=== PATIENT | female | born 2005 | race Caucasian/White ===

== ENCOUNTER 2024-01-02 09:37 | Emergency (ER) | payer OTHER, SELFPAY ==
[2024-01-02 09:53] VITALS: BP 117/70; PULSE 69; RESP 16; TEMP 36.3; O2SAT 99
--- NOTE | 2024-01-02 10:06 | ED.URI ---
HPI - URI/Sore Throat General Chief Complaint: Upper Respiratory Infection Stated Complaint: cold symptoms Time Seen by Provider: 01/02/24 10:06 Source: patient Mode of arrival: ambulatory Limitations: no limitations History of Present Illness HPI Narrative: [age] year Old female presents with complaint of nasal congestion, sinus pain and pressure, intermittent headaches, fatigue for the past 8 days. Symptoms worsening over the last 2 days. Reports intermittent sore throat with postnasal drainage. Taking [id number] Mucinex with little relief of symptoms. Afebrile. all systems reviewed and negative except as noted above. Related Data Home Medications Medication Instructions Recorded Confirmed fluoxetine 20 mg capsule mg 01/02/24 insulin lispro 100 unit/mL subcut 01/02/24 01/02/24 subcutaneous pen (Humalog KwikPen (U-100) Insulin) norgestimate 0.25 mg-ethinyl tablet 01/02/24 estradiol 35 mcg tablet (Aliyah) Allergies Allergy/AdvReac Type Severity Reaction Status Date / Time No Known Allergies Allergy Verified 01/02/24 09:53 Review of Systems Review of Systems: CONSTITUTIONAL: Denies fever, chills, or sweats. Reports fatigue. EYES: Denies visual changes, redness, or discharge. ENT: Reports rhinorrhea, congestion, sore throat. Denies otalgia. CARDIOVASCULAR: Denies chest pain, palpitations, or edema. RESPIRATORY: Denies cough or dyspnea. GASTROINTESTINAL: Denies abdominal pain, nausea, vomiting, or diarrhea. GENITOURINARY: Denies dysuria or hematuria. SKIN: Denies rash or itching. MUSCULOSKELETAL: Denies back pain, joint pain, or myalgia. NEUROLOGIC: Denies headache, numbness, or weakness. PSYCHIATRIC: Denies anxiety or depression. All other systems reviewed are negative, except as documented in HPI. PMFSH Comments At time of signature, agree with nursing past medical, surgical, social and family history. There is no relevant family history pertinent to the presenting complaint. Exam Narrative: GENERAL: This is a well-nourished, well-developed patient, in no apparent distress. HEAD: normocephalic, atraumatic. EYES: PERRL. Sclera clear/white. Vision is grossly intact. EARS: External ears normal, auditory canals clear and without drainage, TMs normal without perforation. Hearing grossly intact. NOSE: External nose normal with moderate congestion, erythema and swelling to bilateral nares. bilateral frontal maxillary sinus tenderness on palpation. THROAT: Mucous membranes moist, Postnasal drainage NECK: Neck supple, non-tender without lymphadenopathy, masses or thyromegaly. CARDIOVASCULAR: Regular rate and rhythm without murmurs, gallops, or rubs. RESPIRATORY: Clear to auscultation. Breath sounds equal bilaterally. No wheezes, rales, or rhonchi. SKIN: warm, Dry, intact with no suspicious lesions or rash, good texture and turgor. NEURO: awake, alert, and oriented to person, place and time. There were no obvious focal neurologic abnormalities. EXTREMITIES: No joint tenderness, effusion, or edema noted. Course Course Level of Care: Express Care Visit Vital Signs Vital signs: Vital Signs Temperature 36.3 C L 01/02/24 09:53 Pulse Rate 69 01/02/24 09:53 Respiratory Rate 16 01/02/24 09:53 Blood Pressure 117/70 01/02/24 09:53 Pulse Oximetry 99 01/02/24 09:53 Oxygen Delivery Room Air 01/02/24 09:53 Temperature 36.3 C L 01/02/24 09:53 Pulse Rate 69 01/02/24 09:53 Respiratory Rate 16 01/02/24 09:53 Blood Pressure 117/70 01/02/24 09:53 Pulse Oximetry 99 01/02/24 09:53 Oxygen Delivery Room Air 01/02/24 09:53 Reviewed MDM - URI/Sore Throat MDM Narrative Medical decision making narrative: negative influenza and COVID testing. Will treat patient for bacterial sinusitis with antibiotic due to duration of symptoms and symptoms findings. Patient is aware of diagnosis, understands and agrees to treatment plan. Anticipatory guidance
[2024-01-02 10:22] LABS: EDINFLUASCREEN Negative; EDINFLUBSCREEN Negative
== END 2024-01-02 10:23 | disposition home or self-care (01) ==
PROVIDERS: Emergency Provider Nurse Practitioner Family; PCP Physician Assistant
DX: J01.90 Acute sinusitis, unspecified (principal); Z20.822 Contact with and (suspected) exposure to COVID-19; E10.9 Type 1 diabetes mellitus without complications
CPT/HCPCS: 87426; 87804; 99213; G0463

== ENCOUNTER 2024-06-30 14:13 | Emergency (ER) | payer OTHER, SELFPAY ==
[2024-06-30 14:44] VITALS: BP 129/64; PULSE 77; RESP 18; TEMP 36.4; O2SAT 100
--- OUTSIDE RECORDS SUMMARY | 2024-06-30 15:09 | XMS_ITS | Clinical Summary ---
Author Organization [employer] [facility] [employer] Address [address] [place] [address] Care Team Providers Care Distribution Spec Name Role Phone Unavailable Primary Care Provider Unavailabl e Source Comments [facility] [employer],non-owned Affiliates and Associated Physician Practices is amultiple site organization consisting of ambulatory clinics and hospital sitesin [place], [place], [place] and [place]. This disclosure is being madepursuant to the Care Everywhere program and may not contain all information available regarding this patient. Last updated 18.[employer] Allergies No known active allergies Medications * Be aware that medications may not be up to date on this document. Alwaysverify current medications with the patient. Medication Sig Dispensed Refills Start Date End Date Status insulin lispro (HUMALOG) 100 UNIT/ML vial Active Active Problems No known active problems Social History Tobacco Use Types Packs/Day Years Used Date Smoking Tobacco: Never Smokeless Tobacco: Never Sex and Gender Information Value Date Recorded Sex Assigned at Not on file Gender Identity Not on file Sexual Orientation Not on file Last Filed Vital Signs Vital Sign Reading Time Taken Comments Blood Pressure 110/62 10/15/2020 11:46 AM CDT Pulse 70 10/15/2020 11:46 AM CDT Temperature 37 ??C (98.6 ??F) 10/15/2020 11:46 AM CDT Respiratory Rate 20 10/15/2020 11:46 AM CDT Oxygen Saturation 98% 07/02/2019 12:50 PM PRESALES CONSULTANT Inhaled Oxygen Concentration - - Weight 66.2 kg (146 lb) 10/15/2020 11:46 AM CDT Height 162.6 cm (5' 4 ) 07/02/2019 12:50 PM PRESALES CONSULTANT Body Mass Index - - Plan of Treatment Health Maintenance Due Date Last Done Comments HIV SCREENING 09/16/2019 HPV VACCINE (1 - 3-dose series) 09/16/2019 CHLAMYDIA/GONORRHEA SCREENING 2020 MENINGOCOCCAL (Group B) VACCINE (1 of 2 - Standard) 2020 HEPATITIS C SCREENING 09/11/2022 DTAP/TDAP/TD VACCINES (1 - Tdap) 09/16/2023 HEPATITIS B VACCINE (1 of 3 - 19+ 3-dose series) 09/16/2023 COVID-19 VACCINE (1 - 2023- season) 2024 INFLUENZA VACCINE (#1) 2024 , 04/24/2018, 03/09/2017, Additional history exists DEPRESSION SCREENING 05/28/2024 10/15/2020 ZOSTER VACCINE (1 of 2) 2054 HIB VACCINE Aged Out No longer eligi ble based on patient's age to complete this topic MENINGOCOCCAL VACCINE Aged Out No liz lisbeth eligible based on patient's age to complete this topic PNEUMOCOCCAL VACCINE Aged Out No long er eligible based on patient's age to complete this topic ANDRESSA FRANKLIN Personal/Family Other [address] [address] ANDRESSA FRANKLIN Personal/Family Other [address] [address] ANDRESSA FRANKLIN Personal/Family Other [address] [address] ANDRESSA FRANKLIN Personal/Family Other [address] [address] AMPARO FRANKLINNA Rodriguez Personal/Family [address] [place] [address] ANDRESSA FRANKLIN Personal/Family Other [address] [address] ANDRESSA FRANKLIN Personal/Family Other [address] [address] LUCAS,ANDRESSA Personal/Family Other [address] [address]
--- OUTSIDE RECORDS SUMMARY | 2024-06-30 15:09 | XMS_ITS | Encounter Summary ---
Author Organization [facility] Address [address] [place] [address] Care Team Providers Care Ornamental Iron Erector Name Role Phone Unavailable Primary Care Provider Unavailabl e Encounter Details Date Type Department Care Team (Late st Contact Info) Description 04/21/2020 Lab Requisition [facility] D[facility] [address] [place] [id number] Navdeep Mclaughlin MD [address] [place] [address] Social History Tobacco Use Types Packs/Day Years Used Date Smoking Tobacco: Never Assessed Sex and Gender Information Value Date Recorded Sex Assigned at Not on file Gender Identity Not on file Sexual Orientation Not on file documented as of this encounter Plan of Treatment Not on file documented as of this encounter Procedures Procedure Name Priority Date/Time Associated Diagnosis Comments DERMATOPATHOLOGY Routine 04/19/2020 12:0 0 AM TOP LIFT NAILER documented in this encounter Results * DERMATOPATHOLOGY (04/19/2020 12:00 AM TOP LIFT NAILER) Case Report Dermatopathology Report ? Case: [id number] ? Authorizing Provider: ??Navdeep Mclaughlin MD ?Collected: ? 04/19/2020 12:00 AM ? Ordering Location: ? [facility] DermPath Lab ?Received: ?04/21/2020 01:12 PM ? Pathologist: ? Marita Trejo MD ? Specimen: ?Skin, right chest ? 0 4:11 PM [facility] DERMATOPATHOLOGY [facility]ORATORY Final Diagnosis Specimen A. SKIN, right chest: COMPOUND MELANOCYTIC NEVUS (D22.5) 0 4:11 PM [facility] DERMATOPATHOLOGY [facility]ORATORY Clinical History Nevus vs atypia. Path# [id number] 0 4:11 PM [facility] DERMATOPATHOLOGY [facility]ORATORY Gross Description Specimen A: Received is one formalin filled container labeled with the patient's name and designated right chest. The specimen consists of a shave biopsy measuring 6x5x1 mm. Jar 0. 0 4:11 PM [facility] DERMATOPATHOLOGY [facility]ORATORY Microscopic Description Specimen A. SKIN, right chest: There are nests of melanocytes at the dermal-epidermal junction and within the dermis. 0 4:11 PM [facility] DERMATOPATHOLOGY LABORATORY Disclaimer An external and internal positive and negative controls are appropriate for the histochemical, immunohistochemical and immunofluorescence stain(s) in this case (if any), except where stated explicitly. The performance characteristics of the stain(s) cited in this report were developed and its performance characteristic determined by the Dermatopathology Laboratory at [facility], directed by Dr. Ivette Newman. These tests need not be, and therefore are not, approved by the [place] Food and Drug Administration. The tests are used for clinical purposes. Billing Codes Specimen Charges Stain Charges 40803 1 0 4:11 PM [facility] DERMATOPATHOLOGY LABORATORY Embedded Images 0 4:11 PM [facility] DERMATOPATHOLOGY LABORATORY Pathology/Cytolog y TISSUE SPECIMEN FROM SKIN / Unknown 04/19/2020 04/21/2020 1:12 PM TOP LIFT NAILER Navdeep Mclaughlin MD LAB - PATHOLOGY/CYTO LOGY ORDERABLES DERMATOPATHOLOGY LABORATORY [facility] - Department of Dermatology [facility] [address] [place] [address], [address] [phone] documented in this encounter Visit Diagnoses Not on filedocumented in this encounter
--- OUTSIDE RECORDS SUMMARY | 2024-06-30 15:09 | XMS_ITS | Encounter Summary ---
Author Organization [facility] Address [address] [place] [address] Phone Care Team Providers Care Internet Consultant Name Role Phone Iron Tavarez MD Primary Care Provider [phone] Nilsa Costa MD Primary Care Provider [phone] Kiara Sharpe Primary Care Provider [phone] Reason for Visit * Reason Onset Date Comments Letter for School/Work 01/13/2021 Encounter Details Date Type Department Care Team (Late st Contact Info) Description 01/13/2021 Documentation [facility] Pediatric Genetics [address] [place] [address] Medical [address] [place] [address] Sonya Miramontes MS Letter for School/Work Social History Tobacco Use Types Packs/Day Years Used Date Smoking Tobacco: Never Smokeless Tobacco: Never PHQ-2 Answer Date Recorded PHQ-2 Total Score (If total score is 3 or more points, staff should administer the PHQ-9) 0 10/24/2020 Comments No Sex and Gender Information Value Date Recorded Sex Assigned at Not on file Legal Sex Female 11:07 PM FACULTY NEUROPSYCHOLOGIST Gender Identity Female 11/03/2020 9:14 PM CDT Sexual Orientation Straight 11/03/2020 9: 14 PM CDT documented as of this encounter Plan of Treatment Not on file documented as of this encounter Goals Goal Patient Goal Type Associated Problems Recent Progress Patient-Stated? Author [facility] Smiley Flores, PhD Note: Increase functioning in daily activities Hemoglobin A1c < 7.5 Result Component 8.1(06/24/19 10:07 AM FACULTY NEUROPSYCHOLOGIST) No Jayda Marquez MD documented as of this encounter Visit Diagnoses Not on filedocumented in this encounter Care Teams Internet Consultant Relationship Specialty Start Date End Date Iron Tavarez MD [address] [place] [address] PCP - General 11/22/16 02/08/22 Nilsa Costa MD [address] [place] [address] PCP - General Pediatrics 02/09/22 03/18/23 Kiara Sharpe PA [address] [facility] [address] [place] [address] PCP - General Internal Medicine 03/19/23 documented as of this encounter
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
--- OUTSIDE RECORDS SUMMARY | 2024-06-30 15:09 | XMS_ITS | Referral Summary ---
Author Organization [facility] Address [address] [place] [address] Care Team Providers Care Buffing Wheel Inspector Name Role Phone Unavailable Primary Care Provider Unavailabl e Source Comments [facility],non-owned Affiliates and Associated Physician Practices is amultiple site organization consisting of ambulatory clinics and hospital sitesin [place], [place], [place] and [place]. This disclosure is being madepursuant to the Care Everywhere program and may not contain all information available regarding this patient. Last updated 18.[facility] Allergies No known active allergies Medications * [...] CDT Oxygen Saturation 98% 07/02/2019 12:50 PM WEATHERIZATION CREW LEADER Inhaled Oxygen Concentration - - Weight 66.2 kg (146 lb) 10/15/2020 11:46 AM CDT Height 162.6 cm (5' 4 ) 07/02/2019 12:50 PM WEATHERIZATION CREW LEADER Body Mass Index - - Plan of Treatment Not on file ANDRESSA FRANKLIN Personal/Family Other [address] [address] ANDRESSA FRANKLIN Personal/Family Other [address] [address] ANDRESSA FRANKLIN Personal/Family Other [address] [address] ANDRESSA FRANKLIN Personal/Family Other [address] [address] NICOLE FRANKLIN Personal/Family [address] [place] [address] ANDRESSA FRANKLIN Personal/Family Other [address] [address] ANDRESSA FRANKLIN Personal/Family Other [address] [place] [address] ANDRESSA FRANKLIN Personal/Family Other [phone] ([place]ato) [address] [place] [address]
--- OUTSIDE RECORDS SUMMARY | 2024-06-30 15:09 | XMS_ITS | Continuity of Care Document ---
Author Organization [facility] Address [address] [place] [address] Phone Care Team Providers Care Animal Bounty Hunter Name Role Phone Armenta OD, Winston Unavailable Unavailable Procedures Procedure Date Eye Exam & Treatment Refraction Advance Directives Directive Yes / No Effective Date File Name No Information Encounters Encounter Description Practice Location Reason(s) For Visit Diagnoses Date Provider Providers Copied on Encounter [facility], [address], [place], [place], [id number], [place] tel:[phone] [facility] No Information 2-201 0 Armenta OD Winston. [address] , [address], [place], [address], [place]. tel:[phone] Family History Family Member Type Diagnosis Age At Onset No Information Payers Payer name Insurance type Covered democrat ID Authorlynettea titami(s) [facility] CI [id number] Social History Type Description Quantity Date Captured [...]
--- OUTSIDE RECORDS SUMMARY | 2024-06-30 15:09 | XMS_ITS | Encounter Summary ---
Author Organization [facility] Address [address] [place] [address] Care Team Providers Care Hospitality Housekeeper Name Role Phone Kiara Sharpe Primary Care Provider [phone] Encounter Details Date Type Department Care Team (Late st Contact Info) Description 01/02/2024 Orders Only [facility] Information Management [address] [place] [address] Scanning, Provider Social History Tobacco Use Types Packs/Day Years Used Date Smoking Tobacco: Never Smokeless Tobacco: Never AUDIT-C Answer Date Recorded Q1: How often [...] on file Legal Sex Female 11:07 PM SENIOR MARKETING COORDINATOR Gender Identity Female 11/03/2020 9:14 PM CDT [...] 7.5 Result Component 8.1(06/24/19 21 10:07 AM SENIOR MARKETING COORDINATOR) No Jayda Marquez MD documented as of this encounter Procedures Procedure Name Priority Date/Time Associated Diagnosis Comments SCAN - LABS 01/02/2024 documented in this encounter Results * SCAN - LABS (01/02/2024) us Provider Scanning Edited Result - Final documented in this encounter Visit Diagnoses Not on filedocumented in this encounter Care Teams Hospitality Housekeeper Relationship Specialty Start Date End Date Kiara Sharpe PA [address] [facility] [address] [place] [address] PCP - General Internal Medicine 03/19/23 documented as of this encounter
--- OUTSIDE RECORDS SUMMARY | 2024-06-30 15:09 | XMS_ITS | Patient Health Summary ---
Author Organization [facility] Address [address] [place] [address] Care Team Providers Care Weed Controller Name Role Phone Unavailable Primary Care Provider Unavailabl e Note from [facility],non-owned Affiliates and Associated Physician Practices is amultiple site organization consisting of ambulatory clinics and hospital sitesin [place], [place], [place] and [place]. This disclosure is being madepursuant to the Care Everywhere program and may not contain all information available regarding this patient. Last updated 18.[facility] Allergies No known active allergies Medications * Be aware that medications may not be up to date on this document. Alwaysverify current medications with the patient. * insulin lispro (HUMALOG) 100 UNIT/ML vial Active Problems No known active problems Social [...] CDT Oxygen Saturation 98% 07/02/2019 12:50 PM WELCOME DESK AGENT Inhaled Oxygen Concentration - - Weight 66.2 kg (146 lb) 10/15/2020 11:46 AM CDT Height 162.6 cm (5' 4 ) 07/02/2019 12:50 PM WELCOME DESK AGENT Body Mass Index - - Procedures * STREP A SCREEN - POINT OF CARE (AMB) STL(Performed 10/15/2020) Performed for Acute nasopharyngitis * CULTURE URINE(Performed 10/06/2020) Performed for Abnormal urine odor * URINALYSIS AUTO - POINT OF CARE (AMB) STL(Performed 10/06/2020) Performed for Abnormal urine odor * DERMATOPATHOLOGY(Performed 04/19/2020) * STREP A SCREEN - POINT OF CARE (AMB) STL(Performed 07/02/2019) Performed for Acute streptococcal pharyngitis * STREP A SCREEN - POINT OF CARE (AMB) STL(Performed 04/06/2017) Performed for Acute pharyngitis, unspecified etiology Results * STREP A SCREEN - POINT OF CARE (AMB) STL (10/15/2020 11:44 AM CDT) Only the most recent of3 resultswithin the time period is included. Strep A Rapid POCT Negative Negative [facility] Strep A Internal Control Present [facility] Lot # [id number] [facility] Expiration Date [facility] Throat ENTIRE THROAT (SURFACE REGION OF NECK) / Unknown 10/15/2020 11:44 AM CDT Isaac Sanchez [facility] LAB - POINT OF CARE ORDERABLES Performing Organization Address [facility]/ZIP Co de Phone Number [facility] [address] [phone] * CULTURE URINE (10/06/2020 5:23 PM CDT) Urine Culture Routine Final report [facility] ACCOUNT BILL Result 1 No growth [facility] ACCOUNT BILL Urine URINE SPECIMEN OBTAINED BY CLEAN CATCH PROCEDURE / Unknown 10/06/2020 5:23 PM CDT 10/06/2020 Narrative Resulting Agency Comment Lab Testing performed at: [facility] [address] ??[facility] [id number] Isaac Sanchez APRN-[facility] LAB - MICRO BIOLOGY ORDERABLES [facility] ACCOUNT [place] [address] [place] [address] * (ABNORMAL) URINALYSIS AUTO - POINT OF CARE (AMB) STL (10/06/2020 5:05 PM CDT) Clarity UA POCT clear [facility] Color UA POCT yellow [facility] Leukocyte UA neg Negative [facility] Nitrite UA POCT neg Negative [facility] Urobilinogen UA 0.2 0.1 - 1.0 [facility] Protein UA POCT 15 Negative [facility] pH UA 8.0(A) 5.0 - 8.0 pH units [facility] Blood UA neg Negative [facility] Specific [place] UA POCT 1.005 1.002 - 1.030 [facility] Ketone UA neg Negative [facility] Bilirubin UA POCT neg Negative [facility] Glucose UA neg Negative [facility] Expiration Date [id number] [facility] Lot # [id number] [facility] QC Verified Yes Yes [facility] Urine URINE / Unknown 10/06/2020 5 :05 PM CDT Isaac Sanchez CARPENTER REPA[facility]-FLAME CHANNEL[facility] LAB - POINT OF CARE ORDERABLES Performing Organization Address [facility]/State/ZIP Co de Phone Number [facility] [address] [phone] * DERMATOPATHOLOGY (04/19/2020 12:00 AM WELCOME DESK AGENT) Case Report Dermatopathology Report ? Case: [id number] ? Authorizing Provider: ??Navdeep Mclaughlin MD ?Collected: ? 04/19/2020 12:00 AM ? Ordering Location: ? [facility] ?Received: ?04/21/2020 01:12 PM ? Pathologist: ? Marita Trejo MD ? Specimen: ?Skin, right chest ? 0 4:11 PM [facility] DERMATOPATHOLOGY [facility]ORAT[facility] Final Diagnosis Specimen A. SKIN, right chest: COMPOUND MELANOCYTIC NEVUS (D22.5) 0 4:11 PM [facility] DERMATOPATHOLOGY [facility]ORAT[facility] Clinical History Nevus vs atypia. Path# [id number] 0 4:11 PM [facility] DERMATOPATH[facility]Y [facility] Gross Description Specimen A: Received is one formalin filled container labeled with the patient's name and designated right chest. The specimen consists of a shave biopsy measuring 6x5x1 mm. Jar 0. 0 4:11 PM [facility] DERMATOPATHOLOGY [facility]OR[facility] Microscopic Description Specimen A. SKIN, right chest: There are nests of melanocytes at the dermal-epidermal junction and within the dermis. 0 4:11 PM [facility] DERMATOPATHOLOGY [facility]ORATORY Disclaimer An external and internal positive and negative controls are appropriate for the histochemical, immunohistochemical and immunofluorescence stain(s) in this case (if any), except where stated explicitly. The performance characteristics of the stain(s) cited in this report were developed and its performance characteristic determined by the Dermatopathology Laboratory at [facility], directed by Dr. Ivette Newman. These tests need not be, and therefore are not, approved by the [place] Food and Drug Administration. The tests are used for clinical purposes. Billing Codes Specimen Charges Stain Charges 37502 1 0 4:11 PM WELCOME DESK AGENT DERMATOPATHOLOGY LABORATORY Embedded Images 0 4:11 PM WELCOME DESK AGENT DERMATOPATHOLOGY LABORATORY Pathology/Cytolog y TISSUE SPECIMEN FROM SKIN / Unknown 04/19/2020 04/21/2020 1:12 PM WELCOME DESK AGENT Navdeep Mclaughlin MD LAB - PATHOLOGY/CYTO LOGY ORDERABLES DERMATOPATHOLOGY LABORATORY [facility] - Department of Dermatology [facility] Specialized Medicine [address] [place] [address], [address] [phone]
--- OUTSIDE RECORDS SUMMARY | 2024-06-30 15:09 | XMS_ITS | Continuity of Care Document ---
Author Organization [facility] Address [address] [place] [address] Phone Care Team Providers Care Setter Automatic Spinning Lathe Name Role Phone Armenta OD, Winston Unavailable Unavailable Procedures Procedure Date Eye Exam & Treatment Refraction Advance Directives Directive Yes / No Effective Date File Name No Information Encounters Encounter Description Practice Location Reason(s) For Visit Diagnoses Date Provider Providers Copied on Encounter [facility], [address], [place], [place], [id number], [place] tel:[phone] [facility] No Information 2-201 0 Armenta OD Winston. [address] , [address], [place], [address], [place]. tel:[phone] Family History Family Member Type Diagnosis Age At Onset No Information Payers Payer name Insurance type Covered republican ID Authorlynettea titami(s) [facility] CI [id number] Social History Type Description Quantity Date Captured [...]
--- OUTSIDE RECORDS SUMMARY | 2024-06-30 15:09 | XMS_ITS | Referral Summary ---
Author Organization [facility] Address [address] [place] [address] Care Team Providers Care Manager Er Name Role Phone Kiara Sharpe Primary Care Provider [phone] Allergies No known active allergies Medications lancets [...] 07/22/2023 Assessment & Plan (07/22/2023 9:46 PM PROJECT DESIGNER): Strep was negative. Encouraged good nutrition. She [...] evaluation. Assessment & Plan (07/22/2023 9:45 PM PROJECT DESIGNER): Continue therapy. She is still seeing improvement. If it persists may need to see orthopedics Assessment & Plan (05/23/2023 12:00 AM PROJECT DESIGNER): Patient continues to experience neck mid back [...] 03/27/2023 Assessment & Plan (05/23/2023 12:00 AM PROJECT DESIGNER): Patient continues to experience neck mid back [...] 1 diabetic. Follows with pediatric Endocrinology and SURGICAL TECH Ria. She is on a pump and continuous glucose monitoring. Indigestion 03/22/2015 Chronic constipation 03/22/2015 Resolved Problems Problem Noted Date Diagnosed Date Resolved Date Neck pain 05/22/2023 11/04/2023 Assessment & Plan (07/22/2023 9:45 PM PROJECT DESIGNER): Continue therapy. She is still seeing improvement. If it persists may need to see orthopedics Assessment & Plan (05/23/2023 12:00 AM PROJECT DESIGNER): Patient continues to experience neck mid back [...] 024 Assessment & Plan (07/22/2023 9:46 PM PROJECT DESIGNER): Weight/BMI is in healthy range. Continue healthy lifestyle to maintain. Assessment & Plan (05/14/2023 2:16 PM PROJECT DESIGNER): Weight/BMI is in healthy range. Continue healthy [...] 7-Valent 01/18/20 06,04/07/2005,01/20/2005,11/18 Tdap 12/24/2015 Varicella 09/18/2005 Social History Tobacco Use Types Packs/Day Years [...] on file Legal Sex Female 11:07 PM PROJECT DESIGNER Gender Identity Female 11/03/2020 9:14 PM CDT Sexual Orientation Straight 11/03/2020 9: 14 PM CDT 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 Job 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 Not on file Not on file Not on file Last Filed Vital Signs Vital Sign Reading Time Taken Comments Blood Pressure 111/66 12/21/2023 11:17 AM CDT Pulse 75 12/21/2023 11:17 AM CDT Temperature 36.4 ??C (97.5 ??F) 12/21/2023 11:17 AM C DT Respiratory Rate 20 05/02/2023 3:38 PM PROJECT DESIGNER Oxygen Saturation 97% 12/21/2023 11:17 AM CDT Inhaled Oxygen Concentration - - Weight 64 kg (141 lb) 02/28/2024 2:30 PM CDT Height 162.6 cm (5' 4 ) 02/28/2024 2:30 PM CDT Body Mass Index 24.2 02/28/2024 2:30 PM CDT Plan of Treatment Not on file Goals Goal Patient Goal Type Associated Problems Recent Progress Patient-Stated? Author [facility] No Smiley Judd, PhD Note: Increase functioning in daily activities Hemoglobin A1c < 7.5 Result Component 8.1(06/24/19 21 10:07 AM PROJECT DESIGNER) No Jayda Marquez MD Procedures Procedure Name Priority Date/Time Associated Diagnosis Comments POCT HEMOGLOBIN A1C Routine 12/21/2023 1 1:26 AM CDT Type 1 diabetes mellitus without complication (CMS/HCC) (HCC) LIPID PANEL Routine 07/05/2022 11:01 AM PROJECT DESIGNER Type 1 diabetes mellitus without complication (CMS/HCC) (HCC) ALBUMIN CREATININE RATIO, URINE Routine 07/05/2022 11:01 AM PROJECT DESIGNER Type 1 diabetes mellitus without complication (CMS/HCC) (HCC) TSH Routine 07/05/2022 11:01 AM PROJECT DESIGNER Type 1 diabetes mellitus without complication (CMS/HCC) (HCC) from Last 3 Months or Most Recently Relevant to Health Maintenance Results * POCT hemoglobin A1c (12/21/2023 11:26 AM CDT) Hemoglobin A1C, POC 7.9 % BLD 12/21/2023 11:2 6 AM CDT Calixto Rollins NP POINT OF CARE TEST NAN SIMMONS Final Result * Albumin Creatinine Ratio, Urine (07/05/2022 11:01 AM PROJECT DESIGNER) Albumin Ur <12.0 mg/L A[facility] BERG Comment: Interpretive Data No reference range established. Current interpretive data was last revised 2018. Testing performed by: [facility], [address] [place] [address]., [id number] Creatinine Ur 84.0 mg/dL AUBREE Comment: Interpretive Data No reference range established. Current interpretive data was last revised 2018. Testing performed by: [address] [address] Albumin Creatinine Ratio, Ur <14 1 - 29 mg/g AUBREE BERG Comment:Testing performed by : [address] [id number] Urine 07/05/2022 11:0 1 AM PROJECT DESIGNER 07/05/2022 12:03 PM PROJECT DESIGNER Calixto Rollins SURGICAL TECH LAB URINE ORDERABLES Fi nal Result Performing Organization Address City/[facility]/ZIP Co de Phone Number [address] [employer] [place] [address] * TSH (07/05/2022 11:01 AM PROJECT DESIGNER) Pathologist [facility] Thyroid Stimulating Hormone 0.74 0.30 - 4.20 mcIUnit/mL AUBREE BERG Comment:Testing performed by : [address] [id number] Blood 07/05/2022 11:0 1 AM PROJECT DESIGNER 07/05/2022 12:02 PM PROJECT DESIGNER Calixto Rollins SURGICAL TECH LAB BLOOD ORDERABLES Fi nal Result [address] [place] [address] * (ABNORMAL) Lipid panel (07/05/2022 11:01 AM PROJECT DESIGNER) Pathologist [facility] Cholesterol 213(H) <=199 mg/dL AUBREE Comment: Interpretive [...] last revised on 2018. Testing performed by: [address] [address] Triglycerides 55 <=129 mg/dL AUBREE BERG Comment: Interpretive Data Ages < or = [...] last revised on 2018. Testing performed by: [address] [address] HDL 112 >=45 mg/dL AUBREE Comment: Interpretive [...] last revised on 2018. Testing performed by: [address] [address] LDL, calculated 90 <=129 mg/dL AUBREE Comment: [...] last revised on 2018. Testing performed by: [address] [address] Non-HDL Cholesterol 101 <=144 mg/dL AUBREE Comment: [...] last revised on 2018. Testing performed by: [facility], [address] [place] [address]., [address] Chol/HDL ratio 2 AUBREE Comment:Testing performed by : [facility], [address] [place] [address]., [address] Blood 07/05/2022 11:0 1 AM PROJECT DESIGNER 07/05/2022 12:02 PM PROJECT DESIGNER Narrative AUBREE - 07/05/2022 12:37 PM PROJECT DESIGNER These lab test should be done fasting. This means do not eat or drink for at least 12 hours prior to getting your blood drawn. Calixto Rollins NP LAB BLOOD ORDERABLES nal Result [facility] [address] [facility] Department [place] [address] from Last 3 Months or Most Recently Relevant to Health Maintenance Insurance [facility] CHOICE PLUS [facility] CHOICE PLUS [facility] CHOICE PLUS [facility] CHOICE PLUS MRA Care Teams Manager Er Relationship Specialty Start Date End Date Kiara Sharpe PA [address] [facility] [address] [place] [address] PCP - General Internal Medicine 03/19/23
--- OUTSIDE RECORDS SUMMARY | 2024-06-30 15:09 | XMS_ITS | Clinical Summary ---
Author Organization [facility] Address [address] [place] [address] Care Team Providers Care It Service Delivery Manager Name Role Phone Unavailable Primary Care Provider Unavailabl e Social History Tobacco Use Types Packs/Day Years Used Date Smoking Tobacco: Never Assessed Comments Unknown Sex and Gender Information Value Date Recorded Sex Assigned at Not on file Legal Sex Female 10:48 AM SHALLOT CLEANER Gender Identity Not on file Sexual Orientation Not on file Plan of Treatment Health Maintenance Due Date Last Done Comments Hepatitis C Virus (HCV) Screening 2004 TdaP Immunization 2004 Human Papillomavirus (HPV) Immunization (1 - 3-dose series) 09/16/2019 Meningococcal B Immunization (1 of 2 - Standard) 2020 Hepatitis B Immunization (1 of 3 - 19+ 3-dose series) 09/16/2023 Influenza Immunization (#1) 01/27/202403/29, 04/02/2016, 03/22/2015 SARS-COV-2 Immunization ( - season) 2024 Respiratory Syncytial Virus (RSV) Immunization (Adult) (1 - 1-dose 75+ series) 09/16/2079 Meningococcal Immunization (ACWY) Aged Out No longer eligible b ased on patient's age to complete this topic Pneumococcal Immunization Combined Aged Out No longer eligible b ased on patient's age to complete this topic Rotavirus Immunization Aged Out No lo nger eligible based on patient's age to complete this topic Insurance [employer] on file
[2024-06-30 15:17] LABS: BEDSIDEPREGUCG Negative (Negative)
--- NOTE | 2024-06-30 15:25 | ED.GENADULT ---
HPI - General Adult General Chief complaint: Urogenital-Female Stated complaint: possible UTI History of Present Illness HPI narrative: Jo Franklin is a 18-year-old female with past medical history of type 1 diabetes blood sugars in the 130s at this time. She presents today with complaints of head pain urinary urgency and dysuria for about 4-5 days. She denies flank pain, denies belly pain, denies fevers denies chills. She also states that she is having some vaginal itching for a couple days. Related Data Home Medications ?Medication ?Instructions ?Recorded ?Confirmed ?Last Taken ?Type fluoxetine 20 mg capsule mg 01/02/24 Unknown History insulin lispro 100 unit/mL subcut 01/02/24 01/02/24 Unknown History subcutaneous pen (Humalog KwikPen (U-100) Insulin) norgestimate 0.25 mg-ethinyl tablet 01/02/24 Unknown History estradiol 35 mcg tablet (Aliyah) Allergies Allergy/AdvReac Type Severity Reaction Status Date / Time No Known Allergies Allergy Verified 06/30/24 15:00 Review of Systems Review of Systems: All systems reviewed & are unremarkable except as noted in HPI and below Exam Narrative: GENERAL: Well-appearing, well-nourished, and in no acute distress. HEAD: Normocephalic, atraumatic. EYES: PERRLA and EOMI. ENT: Nares clear, no rhinorrhea or epistaxis. Mucous membranes moist. NECK: Supple. No adenopathy or masses. No carotid bruits or JVD CHEST: Clear to auscultation. No respiratory distress. No wheezes rales or rhonchi HEART: Regular rate and rhythm. No murmur heard. Normal peripheral pulses. EXTREMITIES: Normal range of motion. No edema. SKIN: Warm, dry, no rash. NEURO: No focal deficits. Alert and oriented x3. PSYCH: Normal mood and affect. Course Course Level of Care: Express Care Visit Vital Signs Vital signs: Vital Signs Temperature 36.4 C L 06/30/24 14:44 Pulse Rate 77 06/30/24 14:44 Respiratory Rate 18 06/30/24 14:44 Blood Pressure 129/64 06/30/24 14:44 Pulse Oximetry 100 06/30/24 14:44 Oxygen Delivery Room Air 06/30/24 14:44 Temperature 36.4 C L 06/30/24 14:44 Pulse Rate 77 06/30/24 14:44 Respiratory Rate 18 06/30/24 14:44 Blood Pressure 129/64 06/30/24 14:44 Pulse Oximetry 100 06/30/24 14:44 Oxygen Delivery Room Air 06/30/24 14:44 Medical Decision Making MDM Narrative Medical decision making narrative: 18 year-old patient presenting with urinary symptoms consistent with UTI. Urinalysis is obtained and positive for signs of infection. Urine culture sent. test is negative. Patient started on Cephalexin and strongly advised to return for any increasing or worsening pain, fevers or vomiting. They expressed understanding of instructions and is discharged in stable condition. screening for her STI and BV results back in the next couple days. Procedures: Pulse oximetry interpretation - not hypoxic. Review of medical records. DISPOSITION: Discharged home in stable condition. IMPRESSION: 1. Acute uncomplicated cystitis Medical Records Medical records reviewed: Yes I reviewed the external patient's medical records. Vital Signs Vital Signs: Vital Signs Temperature 36.4 C L 06/30/24 14:44 Pulse Rate 77 06/30/24 14:44 Respiratory Rate 18 06/30/24 14:44 Blood Pressure 129/64 06/30/24 14:44 Pulse Oximetry 100 06/30/24 14:44 Oxygen Delivery Room Air 06/30/24 14:44 Temperature 36.4 C L 06/30/24 14:44 Pulse Rate 77 06/30/24 14:44 Respiratory Rate 18 06/30/24 14:44 Blood Pressure 129/64 06/30/24 14:44 Pulse Oximetry 100 06/30/24 14:44 Oxygen Delivery Room Air 06/30/24 14:44 vitals reviewed by me Lab Data Lab results reviewed: Yes I reviewed the patient's lab results. Labs: Lab Results 06/30/24 Range/Units 15:15 POC Urine HCG, Qual Negative (Negative) Discharge Plan Discharge Clinical Impression: Urinary tract infection Qualifiers: Urinary tract infection type: acute cystitis Hematuria presence: without hematuria Qualified Code(s): N30.00 - Acute cystitis without hematuria Patient Disposition: Home, Self-Care Condition: Stable Instructions: Antibiotic Form Additional Instructions: Start taking the Cephalexin twice daily for 5 days Your other results will be back in the next 2-3 days If you should need further treatment you will be notified Follow up with your PCP in 1 week to ensure you are improved. Patient Language: Amharic Prescriptions: New cephalexin 500 mg capsule 500 mg PO Q12H Qty: 10 0RF No Action norgestimate-ethinyl estradiol [Aliyah] 0.25-35 mg-mcg tablet fluoxetine 20 mg capsule insulin lispro [Humalog KwikPen Insulin] 100 unit/mL insulin pen SUBCUT loratadine [Claritin] 10 mg tablet 10 mg PO DAILY Qty: 30 0RF methylprednisolone [Medrol (Andre)] 4 mg tablets,dose pack See Rx Instructions PO .COMPLEX Qty: 21 0RF Rx Instructions: orally per package directions fluticasone propionate [Flonase Allergy Relief] 50 mcg/actuation spray,suspension 1 spray intranasal BID Qty: 16 0RF Rx Instructions: administer into each nostril Follow-up/Referrals: PHYSICIAN,WINDING DEPARTMENT SUPERVISOR [Primary Care Provider] -
[2024-06-30 15:26] LABS: EDUAAPPEAR Cloudy; EDUABILI Negative (Negative); EDUABLOOD Trace (Negative); EDUACOLOR1 Light/Pale; EDUAGLUCOSE Negative (Negative); EDUAKETONE Negative (Negative); EDUALEUKO 1+ (Negative); EDUANITRATE Negative (Negative); EDUAPROTEIN Negative (Negative); EDUASPGRAVITY 1.015; EDUAUROBILI 0.2
[2024-06-30 20:30] LABS: Trichomonas Vag PCR NOT DETECTED (NOT DETECTE)
[2024-06-30 20:56] LABS: Chlamydia trachomatis NOT DETECTED (NOT DETECTE); Neisseria gonorrhoeae PCR NOT DETECTED (NOT DETECTE)
[2024-07-03 12:19] LABS: Bacterial Vaginosis NEGATIVE (NEGATIVE)
== END 2024-06-30 15:39 | disposition home or self-care (01) ==
PROVIDERS: Emergency Provider Nurse Practitioner Family
DX: N30.00 Acute cystitis without hematuria (principal); E10.9 Type 1 diabetes mellitus without complications
CPT/HCPCS: 81003; 81025; 81513; 87086; 87491; 87591; 87661; 99213; G0463

== ENCOUNTER 2024-09-03 09:00 | Emergency (ER) | payer OTHER, SELFPAY ==
[2024-09-03 09:17] VITALS: BP 117/68; PULSE 72; RESP 18; TEMP 36.2; O2SAT 100
[2024-09-03 09:25] LABS: EDUAAPPEAR Clear; EDUABILI 1+ (Negative); EDUABLOOD Negative (Negative); EDUACOLOR1 Dark; EDUAGLUCOSE Negative (Negative); EDUAKETONE 1+ (Negative); EDUALEUKO Negative (Negative); EDUANITRATE Negative (Negative); EDUAPROTEIN 1+ (Negative); EDUASPGRAVITY 1.025
--- NOTE | 2024-09-03 09:31 | ED_ITS ---
HPI - Female Genitourinary General Chief complaint: Urogenital-Female Stated complaint: uti symptoms Time Seen by Provider: 09/03/24 09:31 Source: patient Mode of arrival: ambulatory Limitations: no limitations History of Present Illness HPI Narrative: 18-year-old female presents with complaint of urinary urgency for 2-3 days. denies dysuria. Reports cough, congestion For 2-3 days. Woke up this morning with sore throat. Afebrile. has been feeling not well the last couple of days. All systems reviewed and negative except as noted above. Related Data Home Medications ?Medication ?Instructions ?Recorded ?Confirmed ?Last Taken ?Type fluoxetine 20 mg capsule mg 01/02/24 Unknown History insulin lispro 100 unit/mL subcut 01/02/24 01/02/24 Unknown History subcutaneous pen (Humalog KwikPen (U-100) Insulin) norgestimate 0.25 mg-ethinyl tablet 01/02/24 Unknown History estradiol 0.035 mg tablet (Aliyah) Allergies Allergy/AdvReac Type Severity Reaction Status Date / Time No Known Allergies Allergy Verified 09/03/24 09:38 Review of Systems Review of Systems: CONSTITUTIONAL: Denies fever, chills, or sweats. EYES: Denies visual changes, redness, or discharge. ENT: reports rhinorrhea, congestion, sore throat. Denies otalgia. CARDIOVASCULAR: Denies chest pain, palpitations, or edema. RESPIRATORY: reports cough. Denies dyspnea. GASTROINTESTINAL: Denies abdominal pain, nausea, vomiting, or diarrhea. GENITOURINARY: Denies dysuria or hematuria. Reports urgency SKIN: Denies rash or itching. MUSCULOSKELETAL: Denies back pain, joint pain, or myalgia. NEUROLOGIC: Denies headache, numbness, or weakness. PSYCHIATRIC: Denies anxiety or depression. All other systems reviewed are negative, except as documented in HPI. PMFSH Comments At time of signature, agree with nursing past medical, surgical, social and family history. There is no relevant family history pertinent to the presenting complaint. Exam Narrative: GENERAL: This is a well-nourished, well-developed patient, in no apparent distress. HEAD: normocephalic, atraumatic. EYES: PERRL. Sclera clear/white. Vision is grossly intact. EARS: External ears normal, auditory canals clear and without drainage, TMs normal without perforation. Hearing grossly intact. NOSE: External nose normal with no obvious nasal discharge, nares without redness, no rhinorrhea. THROAT: Mucous membranes moist, mild erythema with postnasal drainage NECK: Neck supple, non-tender without lymphadenopathy, masses or thyromegaly. CARDIOVASCULAR: Regular rate and rhythm without murmurs, gallops, or rubs. RESPIRATORY: Clear to auscultation. Breath sounds equal bilaterally. No wheezes, rales, or rhonchi. SKIN: warm, Dry, intact with no suspicious lesions or rash, good texture and turgor. NEURO: awake, alert, and oriented to person, place and time. There were no obv ious focal neurologic abnormalities. EXTREMITIES: No joint tenderness, effusion, or edema noted. Course Course Level of Care: Express Care Visit Vital Signs Vital signs: Vital Signs Temperature 36.2 C L 09/03/24 09:17 Pulse Rate 72 09/03/24 09:17 Respiratory Rate 18 09/03/24 09:17 Blood Pressure 117/68 09/03/24 09:17 Pulse Oximetry 100 09/03/24 09:17 Oxygen Delivery Room Air 09/03/24 09:17 Temperature 36.2 C L 09/03/24 09:17 Pulse Rate 72 09/03/24 09:17 Respiratory Rate 18 09/03/24 09:17 Blood Pressure 117/68 09/03/24 09:17 Pulse Oximetry 100 09/03/24 09:17 Oxygen Delivery Room Air 09/03/24 09:17 reviewed MDM - Female Genitourinary MDM Narrative Medical decision making narrative: negative COVID, strep and influenza. Urinalysis negative for leukocytes or nitrites. Urine culture and strep culture ordered. Patient is well-appearing, nontoxic. Recommend nqdy-dtg-bqamyls medications to treat symptoms. Please be advised this is a medical document. It is intended for ipso-ir-sipn communication. It is written in medical language and may contain unfamiliar abbreviations or verbiage. Medical documents are intended to carry relevant information, facts as evident, and the clinical opinion of the practitioner at the time of the encounter. This report may have been done utilizing a voice recognition system. Attempts have been made to correct errors. However, there may be uncorrected grammatical, spelling, and recognition errors present. The file time of this note does not necessarily represent the time of service. Lab Data Labs: Lab Results 09/03/24 09/03/24 09/03/24 Range/Units 09:23 09:44 09:54 POC Urine Color Dark POC Urine Clarity Clear POC Urine pH 7.0 POC Ur Specif [place] 1.025 POC Urine Protein 1+ (Negative) POC Ur Glucose (UA) Negative (Negative) POC Urine Ketones 1+ (Negative) POC Urine Blood Negative (Negative) POC Urine Nitrite Negative (Negative) POC Urine Bilirubin 1+ (Negative) POC Urine Urobilinogen 1.0 POC U Leukocyte Esteras Negative (Negative) POC Influenza A Ag Negative (Negative) POC Influenza B Ag Negative (Negative) POC SARS CoV-2 Ag Negative (Negative) POC Grp A Strep Screen Negative (Negative) Discharge Plan Discharge Clinical Impression: Viral upper respiratory tract infection with cough, Urinary urgency Patient Disposition: Home Condition: Stable Instructions: Upper Respiratory Infection (ED) Additional Instructions: your COVID, influenza and strep test was negative. Your urinalysis did not show any concerns for a urinary tract infection. Take an bghh-flw-gcjmmly medication to treat her symptoms such as DayQuil NyQuil cold and flu. Drink at least 64 oz of water a day. See your primary care physician if symptoms are not improving. Patient Language: Tajik Prescriptions: No Action norgestimate-ethinyl estradiol [Aliyah] 0.25-35 mg-mcg tablet fluoxetine 20 mg capsule insulin lispro [Humalog KwikPen Insulin] 100 unit/mL insulin pen SUBCUT loratadine [Claritin] 10 mg tablet 10 mg PO DAILY Qty: 30 0RF Follow-up/Referrals: UNKNOWN,DOCTOR [Primary Care Provider] - Time of Disposition: 09:57
[2024-09-03 09:46] LABS: EDSTREPNEGPOS1 Negative (Negative)
--- OUTSIDE RECORDS SUMMARY | 2024-09-03 09:46 | XMS_ITS | Clinical Summary ---
Author Organization [facility] Address [address] [place] [address] Care Team Providers Care Field Care Advocate Name Role Phone Unavailable Primary Care Provider Unavailabl e Source Comments [facility],non-owned Affiliates and Associated Physician Practices is amultiple site organization consisting of ambulatory clinics and hospital sitesin [place], [place], [place] and [place]. This disclosure is being madepursuant to the Care Everywhere program and may not contain all information available regarding this patient. Last updated 18.[facility] Allergies No known active allergies Medications * [...] 70 10/15/2020 11:46 AM CDT Temperature 37 C (98.6 F) 10/15/2020 11:46 AM CDT Respiratory Rate 20 10/15/2020 11:46 AM CDT Oxygen Saturation 98% 07/02/2019 12:50 PM JOB HAND Inhaled Oxygen Concentration - - Weight 66.2 kg (146 lb) 10/15/2020 11:46 AM CDT Height 162.6 cm (5' 4 ) 07/02/2019 12:50 PM JOB HAND Body Mass Index - - Plan of Treatment Health Maintenance Due Date Last Done Comments HIV SCREENING 09/16/2019 HPV VACCINE (1 - 3-dose series) 09/16/2019 CHLAMYDIA/GONORRHEA SCREENING 2020 MENINGOCOCCAL (Group B) VACCINE SHARED DECISION-MAKING (1 of 2 - Standard) 2020 HEPATITIS C SCREENING 09/11/2022 DTAP/TDAP/TD VACCINES (1 - Tdap) 09/16/2023 HEPATITIS B VACCINE (1 of 3 - 19+ 3-dose series) 09/16/2023 COVID-19 VACCINE (1 - season) 2024 DEPRESSION SCREENING 05/28/2024 10/15/2020 INFLUENZA VACCINE (Season Ended) 2025 04/27/2020, 04/24/2018, 03/09/2017, Additional history exists ZOSTER VACCINE (1 of 2) 2054 HIB VACCINE Aged Out No longer eligi ble based on patient's age to complete this topic MENINGOCOCCAL GROUPS A/C/Y/W VACCINE Aged Out No longer eligible based on patient's age to complete this topic PNEUMOCOCCAL VACCINE Aged Out No long er eligible based on patient's age to complete this topic FELICIANO FRANKLINANDRESSA Personal/Family Other [address] [address] ANDRESSA FRANKLIN Personal/Family Other [address] [id number] FELICIANO FRANKLINANDRESSA Personal/Family Other [address] [address] FELICIANO FRANKLINANDRESSA Personal/Family Other [address] [id number] LUCASNICOLE Rodriguez Personal/Family [address] [place] [id number] LUCASANDRESSA Personal/Family Other [address] [address] FELICIANO FRANKLINANDRESSA Personal/Family Other [address] [address] LUCAS,ANDRESSA Personal/Family Other [address] [address]
--- OUTSIDE RECORDS SUMMARY | 2024-09-03 09:46 | XMS_ITS | Clinical Summary ---
Author Organization 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
--- OUTSIDE RECORDS SUMMARY | 2024-09-03 09:47 | XMS_ITS | Encounter Summary ---
Author Organization [facility] Address [address] [facility] [place] [address] Care Team Providers Care Director Of Operations Support Name Role Phone Unavailable Primary Care Provider Unavailabl e Encounter Details Date Type Department Care Team (Late st Contact Info) Description 04/21/[address] [facility] DermPath Lab [address] [facility] [place] [id number] Navdeep Mclaughlin MD [address] [place] [address] Social History Tobacco Use Types Packs/Day Years [...] Comments DERMATOPATHOLOGY Routine 04/19/2020 12:0 0 AM MINESWEEPING OFFICER documented in this encounter Results * DERMATOPATHOLOGY (04/19/2020 12:00 AM MINESWEEPING OFFICER) Case Report Dermatopathology Report Case: [id number] Authorizing Provider: Navdeep Mclaughlin MD Collected: 04/19/2020 12:00 AM Ordering Location: [facility] DermPath Lab Received: 04/21/2020 01:12 PM Pathologist: Marita Trejo MD Specimen: Skin, right chest 0 4:11 PM MINESWEEPING OFFICER DERMATOPATHOLOGY LABORATORY Final Diagnosis Specimen A. SKIN, right chest: COMPOUND MELANOCYTIC NEVUS (D22.5) 0 4:11 PM MINESWEEPING OFFICER DERMATOPATHOLOGY LABORATORY Clinical History Nevus vs atypia. Path# [id number] 0 4:11 PM [facility] DERMATOPATHOLOGY LABORATORY Gross Description Specimen A: Received is one formalin filled container labeled with the patient's name and designated right chest. The specimen consists of a shave biopsy measuring 6x5x1 mm. Jar 0. 0 4:11 PM [facility] DERMATOPATHOLOGY LABORATORY Microscopic Description Specimen A. SKIN, right chest: There are nests of melanocytes at the dermal-epidermal junction and within the dermis. 0 4:11 PM [facility] DERMATOPATHOLOGY LABORATORY Disclaimer An external and internal positive and negative controls are appropriate for the histochemical, immunohistochemical and immunofluorescence stain(s) in this case (if any), except where stated explicitly. The performance characteristics of the stain(s) cited in this report were developed and its performance characteristic determined by the Dermatopathology Laboratory at [facility], directed by Dr. Ivette Newman. These tests need not be, and therefore are not, approved by the [place] Food and Drug Administration. The tests are used for clinical purposes. Billing Codes Specimen Charges Stain Charges 26991 1 0 4:11 PM MINESWEEPING OFFICER DERMATOPATHOLOGY LABORATORY Embedded Images 0 4:11 PM [facility] DERMATOPATHOLOGY LABORATORY Pathology/Cytolog y TISSUE SPECIMEN FROM SKIN / Unknown 04/19/2020 04/21/2020 1:12 PM MINESWEEPING OFFICER Navdeep Mclaughlin MD LAB - PATHOLOGY/CYTO LOGY ORDERABLES DERMATOPATHOLOGY LABORATORY [facility] - Department of Dermatology [facility] Medicine [address] [place] [address], [address] [phone] documented in this encounter Visit Diagnoses Not on filedocumented in this encounter
[2024-09-03 09:56] LABS: EDCOVIDSCREEN Negative (Negative); EDINFLUASCREEN Negative (Negative); EDINFLUBSCREEN Negative (Negative)
--- OUTSIDE RECORDS SUMMARY | 2024-09-03 09:56 | XMS_ITS | Continuity of Care Document ---
Author Organization [facility] Address [address] [place] [address] Phone Care Team Providers Care Visual Display Manager Name Role Phone Armenta OD, Winston Unavailable Unavailable Procedures Procedure Date Eye Exam & Treatment Refraction Advance Directives Directive Yes / No Effective Date File Name No Information Encounters Encounter Description Practice Location Reason(s) For Visit Diagnoses Date Provider Providers Copied on Encounter [facility], [address], [place], [place], [id number], [place] tel:[phone] [facility] No Information 2-201 0 Armenta OD Winston. [address] , [address], [place], [address], [place]. tel:[phone] Family History Family Member Type Diagnosis Age At Onset No Information Payers Payer name Insurance type Covered constitution party ID Authorlynettea titami(s) [facility] CI [id number] Social History Type Description Quantity Date Captured [...]
== END 2024-09-03 10:05 | disposition home or self-care (01) ==
PROVIDERS: Emergency Provider Nurse Practitioner Family
DX: J06.9 Acute upper respiratory infection, unspecified (principal); R05.9 Cough, unspecified; R39.15 Urgency of urination; Z20.822 Contact with and (suspected) exposure to COVID-19; E10.9 Type 1 diabetes mellitus without complications; Z79.4 Long term (current) use of insulin
CPT/HCPCS: 81003; 87081; 87086; 87426; 87804; 87880; 99213; G0463

== ENCOUNTER 2024-09-06 12:35 | Emergency (ER) | payer OTHER, SELFPAY ==
--- OUTSIDE RECORDS SUMMARY | 2024-09-06 12:37 | XMS_ITS | Encounter Summary ---
Author Organization [facility] Address [address] [place] [address] Phone Care Team Providers Care Tooling Supervisor Name Role Phone Iron Tavarez MD Primary Care Provider [phone] Nilsa Costa MD Primary Care Provider Kiara Sharpe Primary Care Provider [phone] Reason for Visit * Reason Onset Date Comments Letter for School/Work 01/13/2021 Encounter Details Date Type Department Care Team (Late st Contact Info) Description 01/13/2021 Documentation [facility] Pediatric Genetics [address] [place] [address] Medical Office Building [address] [place] [address] Sonya Miramontes MS Letter for [...] on file Legal Sex Female 11:07 PM SOFTWARE APPLICATIONS ARCHITECT Gender Identity Female 11/03/2020 9:14 PM CDT Sexual Orientation Straight 11/03/2020 9: 14 PM CDT documented as of this encounter Plan of Treatment Not on file documented as of this encounter Goals Goal Patient Goal Type Associated Problems Recent Progress Patient-Stated? Author [facility] Smiley Flores, PhD Note: Increase functioning in daily activities Hemoglobin A1c < 7.5 Result Component 8.1(06/24/19 10:07 AM SOFTWARE APPLICATIONS ARCHITECT) No Jayda Marquez MD documented as of this encounter Visit Diagnoses Not on filedocumented in this encounter Care Teams Tooling Supervisor Relationship Specialty Start Date End Date Iron Tavarez MD [address] [place] [address] PCP - General 11/22/16 02/08/22 Nilsa Costa MD [address] [place] [address] PCP - General Pediatrics 02/09/22 03/18/23 Kiara Sharpe PA [address] [facility] [facility] [address] [place] [address] PCP - General Internal Medicine 03/19/23 documented as of this encounter
--- OUTSIDE RECORDS SUMMARY | 2024-09-06 12:38 | XMS_ITS | Clinical Summary ---
Author Organization [facility] Address [address] [place] [address] Care Team Providers Care Contract Specialist Name Role Phone Unavailable Primary Care Provider Unavailabl e Source Comments [facility],non-owned Affiliates and Associated Physician Practices is amultiple site organization consisting of ambulatory clinics and hospital sitesin [place], [place], [place] and [place]. This disclosure is being madepursuant to the Care Everywhere program and may not contain all information available regarding this patient. Last updated 18.[email or web address] Allergies No known active allergies Medications * Be aware that medications may not be up to date on this document. Alwaysverify current medications with the patient. insulin lispro (HUMALOG) 100 UNIT/ML vial Active Active Problems No known active problems Social History Tobacco Use Types Packs/Day Years Used Date Smoking Tobacco: Never Smokeless Tobacco: Never Comments No Sex and Gender Information Value Date Recorded Sex Assigned at Not on file Legal Sex Female 5:44 AM PSYCHOLOGISTS Gender Identity Not on file Sexual Orientation Not on file Last Filed Vital Signs Vital Sign Reading Time Taken Comments Blood Pressure 110/62 10/15/2020 11:46 AM CDT Pulse 70 10/15/2020 11:46 AM CDT Temperature 37 C (98.6 F) 10/15/2020 11:46 AM CDT Respiratory Rate 20 10/15/2020 11:46 AM CDT Oxygen Saturation 98% 07/02/2019 12:50 PM PSYCHOLOGISTS Inhaled Oxygen Concentration - - Weight 66.2 kg (146 lb) 10/15/2020 11:46 AM CDT Height 162.6 cm (5' 4 ) 07/02/2019 12:50 PM PSYCHOLOGISTS Body Mass Index - - Plan of [...] COVID-19 VACCINE (1 - 2023- season) 2024 DEPRESSION SCREENING 05/28/2024 10/15/2020 INFLUENZA [...]
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
--- OUTSIDE RECORDS SUMMARY | 2024-09-06 12:38 | XMS_ITS | Encounter Summary ---
Author Organization [facility] Address [address] [place] [address] Phone Care Team Providers Care Jewel Stripper Name Role Phone Kiara Sharpe Primary Care Provider [phone]- [phone] Encounter Details Date Type Department Care Team (Late st Contact Info) Description 08/14/2024 Results Follow-Up 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 Author [facility] No Smiley Judd, PhD Note: Increase functioning in daily activities Hemoglobin A1c < 7.5 Result Component 8.1(06/24/19 21 10:07 AM AUTOMATIC LATHE TENDER) No Jayda Marquez MD documented as of this encounter Visit Diagnoses Not on filedocumented in this encounter Care Teams Jewel Stripper Relationship Specialty Start Date End Date Kiara Sharpe PA [address] [facility] [address] [place] [address] PCP - General Internal Medicine 03/19/23 documented as of this encounter
--- OUTSIDE RECORDS SUMMARY | 2024-09-06 12:38 | XMS_ITS | Continuity of Care Document ---
Author Organization [facility] Address [address] [place] [address] Phone Care Team Providers Care Etcher Electrolytic Name Role Phone Armenta OD, Winston Unavailable Unavailable Procedures Procedure Date Eye Exam & Treatment Refraction Advance Directives Directive Yes / No Effective Date File Name No Information Encounters Encounter Description Practice Location Reason(s) For Visit Diagnoses Date Provider Providers Copied on Encounter [facility], [address], [place], [place], [id number], [place] tel:[phone] [facility] No Information 2-201 0 Armenta OD Winston. [address] , [address], [place], [address], [place]. tel:[phone] Family History Family Member Type Diagnosis Age At Onset No Information Payers Payer name Insurance type Covered democrat ID Authorlynettea titami(s) [facility] CI [id number] Social History Type Description Quantity Date Captured [...]
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
--- OUTSIDE RECORDS SUMMARY | 2024-09-06 12:38 | XMS_ITS | Clinical Summary ---
Author Organization [facility] Address [address] [place] [address] Care Team Providers Care Highway Maintenance Supervisor Name Role Phone Unavailable Primary Care Provider Unavailabl e Social History Tobacco Use Types Packs/Day Years Used Date Smoking Tobacco: Never Assessed Comments Unknown Sex and Gender Information Value Date Recorded Sex Assigned at Not on file Legal Sex Female 10:48 AM LADLE WATCHER Gender Identity Not on file Sexual Orientation [...]
--- OUTSIDE RECORDS SUMMARY | 2024-09-06 12:38 | XMS_ITS | Encounter Summary ---
Author Organization [facility] Address [address] [place] [address] Care Team Providers Care Academic Coach Name Role Phone Unavailable Primary Care Provider Unavailabl e Encounter Details Date Type Department Care Team (Late st Contact Info) Description 04/21/2020 Lab Requisition [facility] [address] [facility] [place] [address] Navdeep Mclaughlin MD [address] [facility] [place] [address] Social History Tobacco Use Types Packs/Day Years Used Date Smoking Tobacco: Never Assessed Comments No Sex and Gender Information Value Date Recorded Sex Assigned at Not on file Legal Sex Female 5:44 AM TARGET MAN Gender Identity Not on file Sexual Orientation Not on file documented as of this encounter Plan of Treatment Not on file documented as of this encounter Procedures Procedure Name Priority Date/Time Associated Diagnosis Comments DERMATOPATHOLOGY Routine 04/19/2020 12:0 0 AM TARGET MAN documented in this encounter Results * DERMATOPATHOLOGY (04/19/2020 12:00 AM TARGET MAN) Case Report Dermatopathology Report Case: [id number] Authorizing Provider: Navdeep Mclaughlin MD Collected: 04/19/2020 12:00 AM Ordering Location: [facility] Received: 04/21/2020 01:12 PM Pathologist: Marita Trejo MD Specimen: Skin, right chest 0 4:11 PM [facility] Final Diagnosis Specimen A. SKIN, right chest: COMPOUND MELANOCYTIC NEVUS (D22.5) 0 4:11 PM [facility] Clinical History Nevus vs atypia. Path# [id number] 0 4:11 PM [facility] Gross Description Specimen A: Received is one formalin filled container labeled with the patient's name and designated right chest. The specimen consists of a shave biopsy measuring 6x5x1 mm. Jar 0. 0 4:11 PM [facility] Microscopic Description Specimen A. SKIN, right chest: There are nests of melanocytes at the dermal-epidermal junction and within the dermis. 0 4:11 PM [facility] Disclaimer An external and internal positive and negative controls are appropriate for the histochemical, immunohistochemical and immunofluorescence stain(s) in this case (if any), except where stated explicitly. The performance characteristics of the stain(s) cited in this report were developed and its performance characteristic determined by the Dermatopathology Laboratory at [facility], directed by Dr. Ivette Newman. These tests need not be, and therefore are not, approved by the [place] Food and Drug Administration. The tests are used for clinical purposes. Billing Codes Specimen Charges Stain Charges 99980 1 0 4:11 PM [facility] Embedded Images 0 4:11 PM [facility] Pathology/Cytolog y TISSUE SPECIMEN FROM SKIN / Unknown 04/19/2020 04/21/2020 1:12 PM TARGET MAN us Navdeep Mclaughlin MD LAB - PATHOLOGY/CYTOLOGY ORDER [place] Final Result DERMATOPATHOLOGY LABORATORY [facility] - Department of Dermatology [address] [place] [address], [facility] [phone] documented in this encounter Visit Diagnoses Not on filedocumented in this encounter
--- OUTSIDE RECORDS SUMMARY | 2024-09-06 12:38 | XMS_ITS | Encounter Summary ---
Author Organization [facility] Address [address] [place] [address] Care Team Providers Care Assembler Filters Name Role Phone Kiara Sharpe Primary Care Provider [phone]- [phone] Encounter Details Date Type Department Care Team (Late st Contact Info) Description 01/02/2024 Orders Only [facility] Health Information Management [address] [place] [address] Scanning, Provider Social History Tobacco Use Types [...] on file Legal Sex Female 11:07 PM INDEPENDENT JEWELER Gender Identity Female 11/03/2020 9:14 PM CDT [...] 7.5 Result Component 8.1(06/24/19 21 10:07 AM INDEPENDENT JEWELER) No Jayda Marquez MD documented as of this encounter Procedures Procedure Name Priority Date/Time Associated Diagnosis Comments SCAN - LABS 01/02/2024 documented in this encounter Results * SCAN - LABS (01/02/2024) us Provider Scanning Edited Result - Final documented in this encounter Visit Diagnoses Not on filedocumented in this encounter Care Teams Assembler Filters Relationship Specialty Start Date End Date Kiara Sharpe PA [address] [facility] [address] [place] [address] PCP - General Internal Medicine 03/19/23 documented as of this encounter
--- OUTSIDE RECORDS SUMMARY | 2024-09-06 12:39 | XMS_ITS | Continuity of Care Document ---
Author Organization [facility] Address [address] [place] [address] Phone Care Team Providers Care Shank Stapler Name Role Phone Armenta OD, Winston Unavailable Unavailable Procedures Procedure Date Eye Exam & Treatment Refraction Advance Directives Directive Yes / No Effective Date File Name No Information Encounters Encounter Description Practice Location Reason(s) For Visit Diagnoses Date Provider Providers Copied on Encounter [facility] [place], [address], [place], [place], [address], [place] tel:[phone] [facility] No Information 2-201 0 Armenta OD [place]. [address] , [address], [place], [address], [place]. tel:[phone] Family History Family Member Type Diagnosis Age At Onset No Information Payers Payer name Insurance type Covered republican ID Authorlynettea titami(s) [facility] CI [id number] Social History Type Description Quantity Date Captured [...]
[2024-09-06 12:43] VITALS: BP 121/61; PULSE 78; RESP 18; TEMP 36.3; O2SAT 100
--- NOTE | 2024-09-06 13:00 | ED.URI ---
HPI - URI/Sore Throat General Chief Complaint: Upper Respiratory Infection Stated Complaint: throat pain Time Seen by Provider: 09/06/24 12:49 Source: patient Mode of arrival: ambulatory History of Present Illness HPI Narrative: She presents today complaining of sore throat and painful swallowing x 6 days. Patient is type 1 diabetic. Patient was seen here at [facility] 3 days ago and diagnosed with a viral URI. At that time she was negative for strep, flu, Covid. Subsequent strep culture negative. Patient denies difficulty swallowing, and fever. She has been taking otki-hqg-ieeikbm medications without relief. Related Data Home Medications ?Medication ?Instructions ?Recorded ?Confirmed ?Last Taken ?Type fluoxetine 20 mg capsule mg 01/02/24 Unknown History insulin lispro 100 unit/mL subcut 01/02/24 01/02/24 Unknown History subcutaneous pen (Humalog KwikPen (U-100) Insulin) norgestimate 0.25 mg-ethinyl tablet 01/02/24 Unknown History estradiol 0.035 mg tablet (Aliyah) buspirone 15 mg tablet mg 09/06/24 Unknown History loratadine 10 mg tablet (Allergy 10 mg PO DAILY 09/06/24 09/06/24 Unknown History Relief (loratadine)) Allergies Allergy/AdvReac Type Severity Reaction Status Date / Time No Known Allergies Allergy Verified 09/06/24 12:47 Review of Systems Review of Systems: CONSTITUTIONAL: Denies body aches, fever, chills, or sweats. EYES: Denies visual changes, redness, or discharge. ENT: Denies rhinorrhea, congestion, or otalgia. Reports sore throat and painful swallowing. CARDIOVASCULAR: Denies chest pain, palpitations, or edema. RESPIRATORY: Denies cough or dyspnea. GASTROINTESTINAL: Denies abdominal pain, nausea, vomiting, or diarrhea. GENITOURINARY: Denies dysuria or hematuria. SKIN: Denies rash, itching, or wounds. MUSCULOSKELETAL: Denies back pain, joint pain, or myalgia. NEUROLOGIC: Denies headache, numbness, tingling, or weakness. PSYCH: Denies depression or anxiety. All systems reviewed & are unremarkable except as noted in HPI and below PMFSH Past Medical History Medical History (Updated 09/06/24 @ 13:42 by Myrna Owens, SUPERVISOR PIGMENT MAKING) Diabetes type 1 Comments At time of signature, I have reviewed and agree with nursing past medical, surgical, social and family history unless otherwise noted. Please see nursing chart for further information. There is no relevant family history pertinent to the presenting complaint. Exam Narrative: GENERAL: Mildly ill-appearing, well-nourished, and in no acute distress. HEAD: Normocephalic, atraumatic. EYES: EOMI. No redness or drainage. Conjunctivae normal. ENT: Mucous membranes pink and moist. Nares clear. No rhinorrhea. TMs normal bilaterally. Throat red, tonsils 3+ with exudate, Uvula midline. NECK: Normal AROM. Supple. No lymphadenopathy. CHEST: No respiratory distress. Clear to auscultation. HEART: Regular rate and rhythm. No murmur appreciated. Normal peripheral pulses. EXTREMITIES: Normal range of motion. SKIN: Warm, dry, no rash. Capillary refill normal. Normal skin turgor. NEURO: No focal deficits. Alert and oriented x3. Gait steady. PSYCH: Normal affect. No signs of depression or anxiety. Course Course Level of Care: Express Care Visit Vital Signs Vital signs: Vital Signs Temperature 97.4 F L 09/06/24 12:43 Pulse Rate 78 09/06/24 12:43 Respiratory Rate 18 09/06/24 12:43 Blood Pressure 121/61 09/06/24 12:43 Pulse Oximetry 100 09/06/24 12:43 Oxygen Delivery Room Air 09/06/24 12:43 Temperature 97.4 F L 09/06/24 12:43 Pulse Rate 78 09/06/24 12:43 Respiratory Rate 18 09/06/24 12:43 Blood Pressure 121/61 09/06/24 12:43 Pulse Oximetry 100 09/06/24 12:43 Oxygen Delivery Room Air 09/06/24 12:43 Reviewed. MDM - URI/Sore Throat MDM Narrative Medical decision making narrative: Rapid strep negative. Monospot positive. Care instructions given to patient. Splenic precautions given. ED precautions questions answered. No prescription medication indicated at this time. Differential Diagnosis Differential diagnosis: Likely upper respiratory infection, viral infection, pharyngitis and other (mono) Lab Data Attestation: I reviewed the patient's lab results. Labs: Lab Results 09/06/24 09/06/24 Range/Units 13:04 13:16 POC Monoscreen Positive (Negative) POC Grp A Strep Screen Negative (Negative) Critical Care Time Critical Care Time Critical Care Time: No Discharge Plan Discharge Clinical Impression: Mononucleosis Qualifiers: Infectious mononucleosis etiology: unspecified organism Infectious mononucleosis complication: without complication Qualified Code(s): B27.90 - Infectious mononucleosis, unspecified without complication Patient Disposition: Home Condition: Stable Instructions: Mononucleosis (ED) Additional Instructions: Your rapid strep today is negative. Your symptoms are due to Wells, which is not treated with antibiotics. Take Tylenol or ibuprofen for pain or fever. Rest and stay hydrated. Go to the ER immediately if symptoms are worsening such as shortness of breath, difficulty swallowing, or abdominal pain. You may have fatigue that can last for several weeks. Follow-up with your PCP before resuming any sports or strenuous activity. Can return to school and work when symptoms improve. Patient Language: Turkmen Prescriptions: No Action buspirone 15 mg tablet loratadine [Allergy Relief (loratadine)] 10 mg tablet 10 mg PO DAILY norgestimate-ethinyl estradiol [Aliyah] 0.25-35 mg-mcg tablet fluoxetine 20 mg capsule insulin lispro [Humalog KwikPen Insulin] 100 unit/mL insulin pen SUBCUT Follow-up/Referrals: Dell,LISSET Craig [Primary Care Provider] - Stand Alone Forms: Work/School Release IP Time of Disposition: 13:31
[2024-09-06 13:06] LABS: EDSTREPNEGPOS1 Negative (Negative)
[2024-09-06 13:18] LABS: EDMONONEGPOS Positive (Negative)
== END 2024-09-06 13:40 | disposition home or self-care (01) ==
PROVIDERS: PCP Physician Assistant
DX: B27.90 Infectious mononucleosis, unspecified without complication (principal); E10.9 Type 1 diabetes mellitus without complications; Z79.899 Other long term (current) drug therapy
CPT/HCPCS: 36416; 86308; 87880; 99212; G0463

== ENCOUNTER 2024-09-26 12:56 | Emergency (ER) | payer OTHER, SELFPAY ==
[2024-09-26 13:05] VITALS: BP 117/68; PULSE 67; RESP 17; TEMP 36.6; O2SAT 100
--- NOTE | 2024-09-26 13:23 | ED_ITS ---
HPI - Female Genitourinary General Chief complaint: Urogenital-Female Stated complaint: UTI Time Seen by Provider: 09/26/24 13:23 Source: patient Mode of arrival: ambulatory Limitations: no limitations History of Present Illness HPI Narrative: here with urinary complaints Related Data Home Medications ?Medication ?Instructions ?Recorded ?Confirmed ?Last Taken ?Type fluoxetine 20 mg capsule mg 01/02/24 Unknown History insulin lispro 100 unit/mL subcut 01/02/24 01/02/24 Unknown History subcutaneous pen (Humalog KwikPen (U-100) Insulin) norgestimate 0.25 mg-ethinyl tablet 01/02/24 Unknown History estradiol 0.035 mg tablet (Aliyah) buspirone 15 mg tablet mg 09/06/24 Unknown History loratadine 10 mg tablet (Allergy 10 mg PO DAILY 09/06/24 09/06/24 Unknown History Relief (loratadine)) Allergies Allergy/AdvReac Type Severity Reaction Status Date / Time No Known Allergies Allergy Verified 09/26/24 13:12 Review of Systems Review of Systems: CONSTITUTIONAL: Denies fever, chills, or sweats. EYES: Denies visual changes, redness, or discharge. ENT: Denies rhinorrhea, congestion, sore throat, or otalgia. CARDIOVASCULAR: Denies chest pain, palpitations, or edema. RESPIRATORY: Denies cough or dyspnea. GASTROINTESTINAL: Denies abdominal pain, nausea, vomiting, or diarrhea. GENITOURINARY: Denies dysuria or hematuria. SKIN: Denies rash or itching. MUSCULOSKELETAL: Denies back pain, joint pain, or myalgia. NEUROLOGIC: Denies headache, numbness, or weakness. PSYCHIATRIC: Denies anxiety or depression. All other systems reviewed are negative, except as documented in HPI. [facility] Past Medical History Medical History (Updated 09/26/24 @ 13:43 by Roselia Aguilar, ASSISTANT WRESTLING COACH) Diabetes type 1 Comments reviewed Exam Narrative: GENERAL: This is a well-nourished, well-developed patient, in no apparent distress. HEAD: normocephalic, atraumatic. EYES: PERRL. Sclera clear/white. Vision is grossly intact. EARS: External ears normal, auditory canals clear and without drainage, TMs normal without perforation. Hearing grossly intact. NOSE: External nose normal with no obvious nasal discharge, nares without redness, no rhinorrhea. THROAT: Mucous membranes moist, posterior pharynx clear. NECK: Neck supple, non-tender without lymphadenopathy, masses or thyromegaly. CARDIOVASCULAR: Regular rate and rhythm without murmurs, gallops, or rubs. RESPIRATORY: Clear to auscultation. Breath sounds equal bilaterally. No wheezes, rales, or rhonchi. GASTROINTESTINAL: Abdomen soft, non-tender, nondistended. Bowel sounds are active. No hepato-splenomegaly, or palpable masses. No guarding. SKIN: warm, Dry, intact with no suspicious lesions or rash, good texture and turgor. NEURO: awake, alert, and oriented to person, place and time. There were no obvious focal neurologic abnormalities. EXTREMITIES: No joint tenderness, effusion, or edema noted. No calf tenderness. Negative Homans sign bilaterally. BACK: Nontender without deformity. No CVA tenderness. Course Course Level of Care: Express Care Visit Vital Signs Vital signs: Vital Signs Temperature 36.6 C 09/26/24 13:05 Pulse Rate 67 09/26/24 13:05 Respiratory Rate 17 09/26/24 13:05 Blood Pressure 117/68 09/26/24 13:05 Pulse Oximetry 100 09/26/24 13:05 Oxygen Delivery Room Air 09/26/24 13:05 Temperature 36.6 C 09/26/24 13:05 Pulse Rate 67 09/26/24 13:05 Respiratory Rate 17 09/26/24 13:05 Blood Pressure 117/68 09/26/24 13:05 Pulse Oximetry 100 09/26/24 13:05 Oxygen Delivery Room Air 09/26/24 13:05 reviewed MDM - Female Genitourinary MDM Narrative Medical decision making narrative: Patient is aware of diagnosis, understands and agrees to treatment plan. Anticipatory guidance was given. Discussed physical exam findings with patient and reviewed prescriptions. Patient agrees to follow-up as directed and is aware of reasons to seek care at the emergency department. Discharge instructions were reviewed with the patient, as well as provided in writing per nursing staff. All questions have been answered, and the patient denies any further questions related to discharge or discharge plan. Lab Data Labs: Lab Results 09/26/24 Range/Units 13:31 POC Urine Color Yellow POC Urine Clarity Clear POC Urine pH 7.0 POC Ur Specif [place] 1.025 POC Urine Protein 1+ (Negative) POC Ur Glucose (UA) Trace (Negative) POC Urine Ketones Negative (Negative) POC Urine Blood Trace (Negative) POC Urine Nitrite Negative (Negative) POC Urine Bilirubin Negative (Negative) POC Urine Urobilinogen 1.0 POC U Leukocyte Esteras Trace (Negative) Discharge Plan Discharge Clinical Impression: Urinary tract infection Qualifiers: Urinary tract infection type: acute cystitis Hematuria presence: with hematuria Qualified Code(s): N30.01 - Acute cystitis with hematuria Patient Disposition: Home Condition: Stable Instructions: Antibiotic Form, Urinary Tract Infection in Women (DC) Additional Instructions: Take medications as prescribed. Follow printed instructions. Push fluids and stay hydrated. Call your primary care doctor to make a follow-up appointment. If you are developing any worsening symptoms or concerns go to the emergency room. Patient Language: Setswana Prescriptions: New phenazopyridine [Pyridium] 200 mg tablet 200 mg PO TID Qty: 6 0RF nitrofurantoin macrocrystal 50 mg capsule 50 mg PO QID 5 Days Qty: 20 5RF Rx Instructions: must administer with a meal/food No Action buspirone 15 mg tablet loratadine [Allergy Relief (loratadine)] 10 mg tablet 10 mg PO DAILY norgestimate-ethinyl estradiol [Aliyah] 0.25-35 mg-mcg tablet fluoxetine 20 mg capsule insulin lispro [Humalog KwikPen Insulin] 100 unit/mL insulin pen SUBCUT Follow-up/Referrals: Dell,LISSET Craig [Primary Care Provider] - Time of Disposition: 13:46
[2024-09-26 13:34] LABS: EDUAAPPEAR Clear; EDUABILI Negative (Negative); EDUABLOOD Trace (Negative); EDUACOLOR1 Yellow; EDUAGLUCOSE Trace (Negative); EDUAKETONE Negative (Negative); EDUALEUKO Trace (Negative); EDUANITRATE Negative (Negative); EDUAPROTEIN 1+ (Negative); EDUASPGRAVITY 1.025
--- OUTSIDE RECORDS SUMMARY | 2024-09-27 13:37 | XMS_ITS | Clinical Summary ---
Author Organization [facility] [employer] Address [address] [place] [address] Care Team Providers Care Director Merit System Name Role Phone Unavailable Primary Care Provider Unavailabl e Source Comments [facility] [employer],non-owned Affiliates and Associated Physician Practices is amultiple site organization consisting of ambulatory clinics and hospital sitesin [place], [place], [place] and [place]. This disclosure is being madepursuant to the Care Everywhere program and may not contain all information available regarding this patient. Last updated 18.[employer] Allergies No known active allergies Medications * [...] on file Legal Sex Female 5:44 AM ACCOUNTS RECEIVABLE ADMINISTRATOR Gender Identity Not on file Sexual Orientation Not on file Last Filed Vital Signs Vital Sign Reading Time Taken Comments Blood Pressure 110/62 10/15/2020 11:46 AM CDT Pulse 70 10/15/2020 11:46 AM CDT Temperature 37 C (98.6 F) 10/15/2020 11:46 AM CDT Respiratory Rate 20 10/15/2020 11:46 AM CDT Oxygen Saturation 98% 07/02/2019 12:50 PM ACCOUNTS RECEIVABLE ADMINISTRATOR Inhaled Oxygen Concentration - - Weight 66.2 kg (146 lb) 10/15/2020 11:46 AM CDT Height 162.6 cm (5' 4 ) 07/02/2019 12:50 PM ACCOUNTS RECEIVABLE ADMINISTRATOR Body Mass Index - - Plan of [...]
--- OUTSIDE RECORDS SUMMARY | 2024-09-27 13:37 | XMS_ITS | Encounter Summary ---
Author Organization [facility] Address [address] [place] [address] Phone Care Team Providers Care Admissions Assistant Name Role Phone Kiara Sharpe Primary Care Provider [phone] Encounter Details Date Type Department Care Team (Late st Contact Info) Description 08/14/2024 Results Follow-Up [facility] Pediatric Endocrinology [address] [place] [phone] Calixto Rollins, CARTER [facility] [address] [place] [address] Social History Tobacco Use Types [...] on file Legal Sex Female 11:[address] LANDSCAPE ARCHITECT Gender Identity Female 11/03/2020 9:14 PM [...] 7.5 Result Component 8.1(06/24/19 21 10:[address] LANDSCAPE ARCHITECT) No Jayda Marquez MD documented as of this encounter Visit Diagnoses Not on filedocumented in this encounter Care Teams Admissions Assistant Relationship Specialty Start Date End Date Kiara Sharpe PA [address] [facility] [address] [place] [address] PCP - General Internal Medicine 03/19/23 documented as of this encounter
--- OUTSIDE RECORDS SUMMARY | 2024-09-27 13:37 | XMS_ITS | Continuity of Care Document ---
Author Organization [facility] Address [address] [place] [address] Phone Care Team Providers Care Supplier Quality Manager Name Role Phone Armenta OD, Winston Unavailable Unavailable Procedures Procedure Date Eye Exam & Treatment Refraction Advance Directives Directive Yes / No Effective Date File Name No Information Encounters Encounter Description Practice Location Reason(s) For Visit Diagnoses Date Provider Providers Copied on Encounter [facility], [address], [place], [place], [id number], [place] tel:[phone] [facility] No Information 2-201 0 Armenta OD [place]. [address] , [address], [place], [address], [place]. tel:[phone] Family History Family Member Type Diagnosis Age At Onset No Information Payers Payer name Insurance type Covered republican ID Authorlynettea titami(s) [facility] CI [id number] Social History Type Description Quantity Date Captured [...]
--- OUTSIDE RECORDS SUMMARY | 2024-09-27 13:37 | XMS_ITS | Encounter Summary ---
Author Organization [facility] Address [address] [place] [address] Care Team Providers Care Template Clerk Name Role Phone Kiara Sharpe Primary Care Provider [phone]- [phone] Encounter Details Date Type Department Care Team (Late st Contact Info) Description 01/02/2024 Orders Only [facility] Health Information Management [address] [place] [address] Scanning, Provider Social History Tobacco Use Types [...] on file Legal Sex Female 11:07 PM AOC DIRECTOR INTELLIGENCE OFFICER Gender Identity Female 11/03/2020 9:14 PM CDT [...] 7.5 Result Component 8.1(06/24/19 21 10:07 AM AOC DIRECTOR INTELLIGENCE OFFICER) No Jayda Marquez MD documented as of this encounter Procedures Procedure Name Priority Date/Time Associated Diagnosis Comments SCAN - LABS 01/02/2024 documented in this encounter Results * SCAN - LABS (01/02/2024) us Provider Scanning Edited Result - Final documented in this encounter Visit Diagnoses Not on filedocumented in this encounter Care Teams Template Clerk Relationship Specialty Start Date End Date Kiara Sharpe PA [address] [facility] [address] [place] [address] PCP - General Internal Medicine 03/19/23 documented as of this encounter
--- OUTSIDE RECORDS SUMMARY | 2024-09-27 13:37 | XMS_ITS | Encounter Summary ---
Author Organization [facility] Address [address] [place] [address] Phone Care Team Providers Care Sfdc Developer Name Role Phone Iron Tavarez MD Primary Care Provider [phone] Nilsa Costa MD Primary Care Provider [phone] Kiara Sharpe Primary Care Provider [phone]- [phone] Reason for Visit * Reason Onset Date Comments Letter for School/Work 01/13/2021 Encounter Details Date Type Department Care Team (Late st Contact Info) Description 01/13/2021 Documentation [facility] Pediatric Genetics [address] [place] [address] Medical Office Building [address] [place] [address] Sonya Miramontes MS Letter for [...] on file Legal Sex Female 11:07 PM CANAL DRIVER Gender Identity Female 11/03/2020 9:14 PM CDT Sexual Orientation Straight 11/03/2020 9: 14 PM CDT documented as of this encounter Plan of Treatment Not on file documented as of this encounter Goals Goal Patient Goal Type Associated Problems Recent Progress Patient-Stated? Author [facility] Smiley Flores, PhD Note: Increase functioning in daily activities Hemoglobin A1c < 7.5 Result Component 8.1(06/24/19 10:07 AM CANAL DRIVER) No Jayda Marquez MD documented as of this encounter Visit Diagnoses Not on filedocumented in this encounter Care Teams Sfdc Developer Relationship Specialty Start Date End Date Iron Tavaerz MD [address] [facility] [address] [place] [address] PCP - General 11/22/16 02/08/22 Nilsa Costa MD [address] [address] [facility] [address] [place] [address] PCP - General Pediatrics 02/09/22 03/18/23 Kiara Sharpe PA [address] [facility] [address] [place] [address] PCP - General Internal Medicine 03/19/23 documented as of this encounter
--- OUTSIDE RECORDS SUMMARY | 2024-09-27 13:37 | XMS_ITS | Referral Summary ---
Author Organization [facility] Address [address] [place] [address] Care Team Providers Care Oil Burner Installer Name Role Phone Kiara Sharpe Primary Care Provider [phone]- [phone] Encounters Date Type Department Care Team Description 09/08/2024 Telephone [facility] Family Medicine [address] [facility] [address] [place] [phone] Kiara Sharpe PA 09/03/2024 Telephone [facility] Pediatric Endocrinology [address] [place] [address] Tg Houston MD 08/14/2024 Results Follow-Up [facility] Pediatric Endocrinology [address] [place] [phone] Calixto Rollins NP 07/04/2024 Telephone [facility] Pediatric Endocrinology [facility] 2nd [place] [address] Kailey Fonseca Med Management 07/04/2024 2:40 PM DRY CHARGE PROCESS ATTENDANT Office Visit [facility] Physicians [facility] Pediatric Endocrinology [address] [place] [phone] Calixto Rollins NP Presence of hybrid [...] school 2 each 1 05/09/20 23 Active Omnipod 5 G6 Pods, Gen 5, [...] taking.Reported on 07/04/2024 methocarbamoL (ROBAXIN) 500 mg tabletIndications: Chronic neck [...] FAILS) 120 mL 3 05/29/19 25 Active ondansetron ODT (ZOFRAN-ODT) 4 mg disintegrating tabletIndications: Type 1 diabetes mellitus without complication (HCC),Nausea DISSOLVE 1 TABLET ON THE TONGUE EVERY 8 HOURS NEEDED FOR NAUSEA AND VOMITING. 20 tablet 07/04/19 25 Active Omnipod 5 G6-G7 Pods, Gen 5, cartridge USE DIRECTED FOR INSULIN ADMINISTRATION. CHANGE POD EVERY 48 HOURS (2 DAYS) 30 each 3 08/13/19 25 Active Dexcom G6 Transmitter deviceIndications: Type 1 diabetes mellitus without complication (HCC) USE DIRECTED FOR CONTINUOUS GLUCOSE MONITORING. CHANGE TRANSMITTER EVERY 90 DAYS 1 each 3 08/13/19 25 Active Active Problems Problem Noted Date [...] 07/22/2023 Assessment & Plan (07/22/2023 9:46 PM DRY CHARGE PROCESS ATTENDANT): Strep was negative. Encouraged good nutrition. She [...] evaluation. Assessment & Plan (07/22/2023 9:45 PM DRY CHARGE PROCESS ATTENDANT): Continue therapy. She is still seeing improvement. If it persists may need to see orthopedics Assessment & Plan (05/23/2023 12:00 AM DRY CHARGE PROCESS ATTENDANT): Patient continues to experience neck mid back [...] 03/27/2023 Assessment & Plan (05/23/2023 12:00 AM DRY CHARGE PROCESS ATTENDANT): Patient continues to experience neck mid back [...] 1 diabetic. Follows with pediatric Endocrinology and SCHOOL BUS ATTENDANT Ria. She is on a pump and continuous glucose monitoring. Indigestion 03/22/2015 Chronic constipation 03/22/2015 Resolved Problems Problem Noted Date Diagnosed Date Resolved Date Neck pain 05/22/2023 11/04/2023 Assessment & Plan (07/22/2023 9:45 PM DRY CHARGE PROCESS ATTENDANT): Continue therapy. She is still seeing improvement. If it persists may need to see orthopedics Assessment & Plan (05/23/2023 12:00 AM DRY CHARGE PROCESS ATTENDANT): Patient continues to experience neck mid back [...] 024 Assessment & Plan (07/22/2023 9:46 PM DRY CHARGE PROCESS ATTENDANT): Weight/BMI is in healthy range. Continue healthy lifestyle to maintain. Assessment & Plan (05/14/2023 2:16 PM DRY CHARGE PROCESS ATTENDANT): Weight/BMI is in healthy range. 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 Not on file Not on file Not on file Last Filed Vital Signs Vital Sign Reading Time Taken Comments Blood Pressure 119/82 07/04/2024 2:46 PM DRY CHARGE PROCESS ATTENDANT Pulse 69 07/04/2024 2:46 PM DRY CHARGE PROCESS ATTENDANT Temperature 36.4 C (97.5 F) 12/21/2023 11:17 AM CDT Respiratory Rate 20 05/02/2023 3:38 PM DRY CHARGE PROCESS ATTENDANT Oxygen Saturation 100% 07/04/2024 2:46 PM DRY CHARGE PROCESS ATTENDANT Inhaled Oxygen Concentration - - Weight 66.5 kg (146 lb 9.7 oz) 07/04/2024 2:46 P M DRY CHARGE PROCESS ATTENDANT Height 163 cm (5' 4.17 ) 07/04/2024 2:46 PM DRY CHARGE PROCESS ATTENDANT Body Mass Index 25.03 07/04/2024 2:46 PM DRY CHARGE PROCESS ATTENDANT Plan of Treatment Not on file Goals Goal Patient Goal Type Associated Problems Recent Progress Patient-Stated? Author [facility] No Smiley Judd M., PhD Note: Increase functioning in daily activities Hemoglobin A1c < 7.5 Result Component 8.1(06/24/19 21 10:07 AM DRY CHARGE PROCESS ATTENDANT) No Jayda Marquez MD Procedures Procedure Name [...] HEMOGLOBIN A1C Routine 07/04/2024 2 :49 PM DRY CHARGE PROCESS ATTENDANT Type 1 diabetes mellitus without complication (HCC) from Last 3 Months Results * Tissue transglutaminase IgA (TGG-IgA Ab) (08/07/2024 11:38 AM CDT) Tissue transglutaminase ab, IgA <1.0 U/mL [facility] Comment: Value Interpretation ----- <15.0 Antibody not detected > or = 15.0 Antibody detected Blood 08/07/2024 11:3 8 AM CDT 08/07/2024 11:39 AM CDT Narrative [facility] - 08/10/2024 3:14 AM CDT FASTING:YES FASTING: YES us Calixto Rollins NP LAB BLOOD ORDERABLES Fi nal Result [facility] [address] [place] [address] * Albumin Creatinine Ratio, Urine (08/07/2024 11:38 [...] AM CDT FASTING:YES FASTING: YES Calixto Rollins SCHOOL BUS ATTENDANT LAB URINE ORDERABLES Fi nal Result Performing Organization Address City/[facility]/ZIP Co de Phone Number [facility] [address] [place] [address] * TSH (08/07/2024 11:38 AM CDT) Pathologist [facility] TSH 0.80 mIU/L [facility] Comment: Reference Range 1-19 Years 0.50-4.30 Ranges First trimester 0.26-2.66 Second trimester 0.55-2.73 Third trimester 0.43-2.91 Blood 08/07/2024 11:3 8 AM CDT 08/07/2024 11:39 AM CDT Narrative [facility] - 08/10/2024 3:14 AM CDT FASTING:YES FASTING: YES us Calixto Rollins SCHOOL BUS ATTENDANT LAB BLOOD ORDERABLES Fi nal Result [facility] [address] [place] [address] * T4, free (08/07/2024 11:38 AM CDT) Pathologist [facility] Free T4 1.2 0.8 - 1.4 ng/dL [facility] Blood 08/07/2024 11:3 8 AM CDT 08/07/2024 11:39 AM CDT Narrative [facility] - 08/10/2024 3:14 AM CDT FASTING:YES FASTING: YES us Calixto Rollins SCHOOL BUS ATTENDANT LAB BLOOD ORDERABLES Fi nal Result DEE DEE [address] [address] [facility] [place] [address] * (ABNORMAL) Lipid panel (08/07/2024 11:38 AM CDT) Pathologist [facility] Cholesterol 182(H) <170 mg/dL [facility] HDL 95 >45 mg/dL [facility] Triglycerides 51 <90 mg/dL [facility] LDL 74 <110 mg/dL (calc) [facility] Comment: LDL-C is now calculated using the David-Peres calculation, which is a validated novel method providing better accuracy than the Friedewald equation in the estimation of LDL-C. David PEPE et al. JERMAINE. 2013;310(19): 4731-4250 (http://education.AppLabs.Glomera/faq/DBF894) Chol/HDL ratio 1.9 <5.0 (calc) [facility] [...] CDT FASTING:YES FASTING: YES us Calixto Rollins SCHOOL BUS ATTENDANT LAB BLOOD ORDERABLES Fi nal Result DEE DEE [facility] [address] [address] * POCT hemoglobin A1c (07/04/2024 2:49 PM DRY CHARGE PROCESS ATTENDANT) Hemoglobin A1C, POC 7.3 4.0 - 5.6 % [facility] 07/04/2024 2:49 PM DRY CHARGE PROCESS ATTENDANT Calixto Rollins NP POINT OF CARE TEST ANN SIMMONS Final Result from Last 3 Months Insurance [facility]ICE PLUS [facility] [place] [employer] [facility] CHOICE PLUS [employer] Care Teams Oil Burner Installer Relationship Specialty Start Date End Date Kiara Sharpe PA [address] [facility] [address] [place] [address] PCP - General Internal Medicine 03/19/23
--- OUTSIDE RECORDS SUMMARY | 2024-09-27 13:37 | XMS_ITS | Clinical Summary ---
Author Organization [facility] Address [address] [place] [address] Care Team Providers Care Shoder Filler Name Role Phone Unavailable Primary Care Provider Unavailabl e Social History Tobacco Use Types Packs/Day Years Used Date Smoking Tobacco: Never Assessed Comments Unknown Sex and Gender Information Value Date Recorded Sex Assigned at Not on file Legal Sex Female 10:48 AM BINGO CLERK Gender Identity Not on file Sexual Orientation [...]
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
--- OUTSIDE RECORDS SUMMARY | 2024-09-27 13:38 | XMS_ITS | Encounter Summary ---
Author Organization [facility] Address [address] [facility] [place] [address] Care Team Providers Care Lead Burner Helper Name Role Phone Unavailable Primary Care Provider Unavailabl e Encounter Details Date Type Department Care Team (Late st Contact Info) Description 04/21/2020 Lab Requisition [facility] DermPath Lab [address] [facility] [place] [address] Navdeep Mclaughlin MD [address] ON [address] OF [facility] [place] [address] Social History Tobacco Use Types Packs/Day Years Used Date Smoking Tobacco: Never Assessed Comments No Sex and Gender Information Value Date Recorded Sex Assigned at Not on file Legal Sex Female 5:44 AM CLINICAL ATHLETIC INSTRUCTOR Gender Identity Not on file Sexual Orientation Not on file documented as of this encounter Plan of Treatment Not on file documented as of this encounter Procedures Procedure Name Priority Date/Time Associated Diagnosis Comments DERMATOPATHOLOGY Routine 04/19/2020 12:0 0 AM CLINICAL ATHLETIC INSTRUCTOR documented in this encounter Results * DERMATOPATHOLOGY (04/19/2020 12:00 AM CLINICAL ATHLETIC INSTRUCTOR) Case Report Dermatopathology Report Case: [id number] Authorizing Provider: Navdeep Mclauglhin MD Collected: 04/19/2020 12:00 AM Ordering Location: [facility] D[facility] Lab Received: 04/21/2020 01:12 PM Pathologist: Marita Trejo MD Specimen: Skin, right chest 0 4:11 PM CLINICAL ATHLETIC INSTRUCTOR DERMATOPATHOLOGY LABORATORY Final Diagnosis Specimen A. SKIN, right chest: COMPOUND MELANOCYTIC NEVUS (D22.5) 0 4:11 PM [facility] DERMATOPATHOLOGY LABORATORY Clinical History Nevus vs atypia. Path# [id number] 0 4:11 PM [facility] DERMATOPATHOLOGY LABORATORY Gross Description Specimen A: Received is one formalin filled container labeled with the patient's name and designated right chest. The specimen consists of a shave biopsy measuring 6x5x1 mm. Jar 0. 0 4:11 PM [facility] DERMATOPATHOLOGY LABORATORY Microscopic Description Specimen A. SKIN, right chest: There are nests of melanocytes at the dermal-epidermal junction and within the dermis. 0 4:11 PM [facility] DERMATOPATHOLOGY LABORATORY Disclaimer An external and internal positive and negative controls are appropriate for the histochemical, immunohistochemical and immunofluorescence stain(s) in this case (if any), except where stated explicitly. The performance characteristics of the stain(s) cited in this report were developed and its performance characteristic determined by the Dermatopathology Laboratory at [facility], directed by Dr. Ivette Newman. These tests need not be, and therefore are not, approved by the [place] Food and Drug Administration. The tests are used for clinical purposes. Billing Codes Specimen Charges Stain Charges 72598 1 0 4:11 PM CLINICAL ATHLETIC INSTRUCTOR DERMATOPATHOLOGY LABORATORY Embedded Images 0 4:11 PM [facility] DERMATOPATHOLOGY LABORATORY Pathology/Cytolog y TISSUE SPECIMEN FROM SKIN / Unknown 04/19/2020 04/21/2020 1:12 PM CLINICAL ATHLETIC INSTRUCTOR us Navdeep Mclaughlin MD LAB - PATHOLOGY/CYTOLOGY ORDER [place] Final Result DERMATOPATHOLOGY LABORATORY [facility] - Department of Dermatology [address] [place] [address], [facility] [phone] documented in this encounter Visit Diagnoses Not on filedocumented in this encounter
--- OUTSIDE RECORDS SUMMARY | 2024-09-27 13:39 | XMS_ITS | Continuity of Care Document ---
Author Organization [facility] Address [address] [place] [address] Phone Care Team Providers Care Purchase Request Editor Name Role Phone Armenta OD, Winston Unavailable Unavailable Procedures Procedure Date Eye Exam & Treatment Refraction Advance Directives Directive Yes / No Effective Date File Name No Information Encounters Encounter Description Practice Location Reason(s) For Visit Diagnoses Date Provider Providers Copied on Encounter [facility], [address], [place], [place], [id number], [place] tel:[phone] [facility] No Information 2-201 0 Armenta OD Winston. [address] , [address], [place], [address], [place]. tel:[phone] Family History Family Member Type Diagnosis Age At Onset No Information Payers Payer name Insurance type Covered libertarian ID Authorlynettea titami(s) [facility] CI [id number] Social History Type Description Quantity Date Captured [...]
== END 2024-09-26 14:00 | disposition home or self-care (01) ==
PROVIDERS: Emergency Provider Nurse Practitioner; PCP Physician Assistant
DX: N30.01 Acute cystitis with hematuria (principal); E10.9 Type 1 diabetes mellitus without complications
CPT/HCPCS: 81003; 87086; 99213; G0463

== ENCOUNTER 2024-10-06 14:54 | Emergency (ER) | payer OTHER, SELFPAY ==
--- NOTE | 2024-10-06 14:56 | ED.FEMALEGU ---
HPI - Female Genitourinary General Chief complaint: Urogenital-Female Stated complaint: uti Time Seen by Provider: 10/06/24 14:55 Source: patient Mode of arrival: ambulatory Limitations: no limitations History of Present Illness HPI Narrative: Jo is a 19-year-old female patient presenting to the clinic today with complaints possible UTI. She reports she has had burning, frequency, and urgency for the past 2 weeks. Also reporting some vaginal itching with foul-smelling discharge. Recently has been treated with cephalexin and Macrobid to cover her urinary tract infection. Both of her urine cultures came back negative for any growth. She is type 1 diabetic-has allow insulin pump. States her blood sugars approximately 130 at this time and has been well controlled. Last menstrual period was over 2 weeks ago. Denies any concern for sexually transmitted infections. Denies chance for . Related Data Home Medications ?Medication ?Instructions ?Recorded ?Confirmed ?Last Taken ?Type fluoxetine 20 mg capsule mg 01/02/24 Unknown History insulin lispro 100 unit/mL subcut 01/02/24 01/02/24 Unknown History subcutaneous pen (Humalog KwikPen (U-100) Insulin) norgestimate 0.25 mg-ethinyl tablet 01/02/24 Unknown History estradiol 0.035 mg tablet (Aliyah) buspirone 15 mg tablet mg 09/06/24 Unknown History loratadine 10 mg tablet (Allergy 10 mg PO DAILY 09/06/24 10/06/24 Unknown History Relief (loratadine)) Allergies Allergy/AdvReac Type Severity Reaction Status Date / Time No Known Allergies Allergy Verified 10/06/24 15:03 Review of Systems Review of Systems: Pertinent positives per HPI. Patient denies any fever, chills, rash, headache, visual changes, dizziness, cough, runny nose, sore throat, shortness of breath, chest pain, palpitations, nausea, vomiting, diarrhea, constipation, abdominal pain PMFSH Past Medical History Medical History Diabetes type 1 Comments At the time of my signature, I reviewed and agree with the nursing past medical, surgical, social, and family history. There is no relevant family history pertinent to the patient complaint. Exam Narrative: General: Well-developed, well nourished, in no apparent distress. Head: Normocephalic, atraumatic. Cardio: Regular rate and rhythm, s1 and s2 normal, no murmur appreciated. Resp: Clear to auscultation bilaterally, no rhonchi, rales, wheezing or rubs. Abdomen: Soft, pliable, bowel sounds present in all quadrants, non-tender to palpation, no organomegly, no CVAT tenderness. : Deferred-patient self swab for bacterial vaginosis Course Course Emergency Course: Portions of this record may have been created with voice recognition software. Level of Care: Express Care Visit Vital Signs Vital signs: Vital Signs Temperature 36.3 C L 10/06/24 15:13 Pulse Rate 82 10/06/24 15:13 Respiratory Rate 18 10/06/24 15:13 Blood Pressure 128/55 L 10/06/24 15:13 Pulse Oximetry 100 10/06/24 15:13 Oxygen Delivery Room Air 10/06/24 15:13 Temperature 36.3 C L 10/06/24 15:13 Pulse Rate 82 10/06/24 15:13 Respiratory Rate 18 10/06/24 15:13 Blood Pressure 128/55 L 10/06/24 15:13 Pulse Oximetry 100 10/06/24 15:13 Oxygen Delivery Room Air 10/06/24 15:13 Vital signs reviewed MDM - Female Genitourinary MDM Narrative Medical decision making narrative: At the time of visit patient is resting comfortably on the exam table. Patient appears to be nontoxic. Labs: Urinalysis positive for leukocytes, protein, and blood. We will send urine for culture. Bedside test was negative Plan: I suspect patient has UTI with itchy vaginal discharge. Will send in prescription for Diflucan and Augmentin. Patient self swab for bacterial vaginosis and if comes back positive we will send in appropriate treatment at that time. Supportive measures were discussed with the patient and they voiced understanding discharge instructions and agrees to treatment plan. Return precautions reviewed Differential Diagnosis Differential diagnosis: Likely urinary tract infection, bacterial vaginosis, trichomoniasis, cervicitis, ovarian cyst, vaginitis, ruptured ovarian cyst, cyst of Bartholin's gland, cystitis and dysmenorrhea Lab Data Labs: Lab Results 10/06/24 10/06/24 10/06/24 Range/Units 15:15 15:27 15:28 POC Urine Color Yellow POC Urine Clarity Clear POC Urine pH 7.0 POC Ur Specif [place] 1.025 POC Urine Protein 1+ (Negative) POC Ur Glucose (UA) Negative (Negative) POC Urine Ketones Negative (Negative) POC Urine Blood Trace (Negative) POC Urine Nitrite Negative (Negative) POC Urine Bilirubin Negative (Negative) POC Urine Urobilinogen 0.2 POC U Leukocyte Esteras 1+ (Negative) POC Urine HCG, Qual Negative (Negative) Bact Vaginosis Panel Pending Discharge Plan Discharge Clinical Impression: Vaginal discharge, Itching of vagina Urinary tract infection Qualifiers: Urinary tract infection type: acute cystitis Hematuria presence: with hematuria Qualified Code(s): N30.01 - Acute cystitis with hematuria Patient Disposition: Home Condition: Stable Instructions: Antibiotic Form, Urinary Tract Infection in Women (ED), Yeast Infection (ED), Vaginal Discharge (ED) Additional Instructions: Urinalysis positive for leukocytes, blood, and protein. We will send urine for culture. You self swab for bacterial vaginosis in the clinic today and that was sent to lab Will cover for yeast infection- take Augmentin and Diflucan as prescribed Increase fluids and stay well hydrated Wipe front to back. May use wet wipes. Avoid tub baths If sexually active- pee before and after intercourse. Wear cotton panties Avoid tight clothing up against the genitals Follow up with your PCP in 1 week if symptoms persist. Patient Language: Kinyarwanda Prescriptions: New fluconazole 150 mg tablet 150 mg PO ONCE Qty: 2 0RF Rx Instructions: as a single dose. May repeat in 72 hours if needed. amoxicillin-pot clavulanate 875-125 mg tablet 1 tablet PO Q12H 7 Days Qty: 14 0RF No Action buspirone 15 mg tablet loratadine [Allergy Relief (loratadine)] 10 mg tablet 10 mg PO DAILY norgestimate-ethinyl estradiol [Aliyah] 0.25-35 mg-mcg tablet fluoxetine 20 mg capsule insulin lispro [Humalog KwikPen Insulin] 100 unit/mL insulin pen SUBCUT Follow-up/Referrals: Dell,LISSET Craig [Primary Care Provider] - Time of Disposition: 15:27 Quality NIHSS Nursing Documentation ED NIHSS nursing documentation: reviewed/agree
--- OUTSIDE RECORDS SUMMARY | 2024-10-06 14:58 | XMS_ITS | Encounter Summary ---
Author Organization [facility] Address [address] [facility] [place] [address] Care Team Providers Care Estimator Lumber Name Role Phone Unavailable Primary Care Provider Unavailabl e Encounter Details Date Type Department Care Team (Late st Contact Info) Description 04/21/2020 Lab Requisition [facility] DermPath Lab [address] [facility] [facility] [place] [address] Navdeep Mclaughlin MD [address] [facility] [place] [address] Social History Tobacco Use Types Packs/Day Years Used Date Smoking Tobacco: Never Assessed Comments No Sex and Gender Information Value Date Recorded Sex Assigned at Not on file Legal Sex Female 5:44 AM ASSISTANT PROJECT ENGINEER Gender Identity Not on file Sexual Orientation Not on file documented as of this encounter Plan of Treatment Not on file documented as of this encounter Procedures Procedure Name Priority Date/Time Associated Diagnosis Comments DERMATOPATHOLOGY Routine 04/19/2020 12:0 0 AM ASSISTANT PROJECT ENGINEER documented in this encounter Results * DERMATOPATHOLOGY (04/19/2020 12:00 AM ASSISTANT PROJECT ENGINEER) Case Report Dermatopathology Report Case: [id number] Authorizing Provider: Navdeep Mclaughlin MD Collected: 04/19/2020 12:00 AM Ordering Location: [facility] DermPath Lab Received: 04/21/2020 01:12 PM Pathologist: Marita Trejo MD Specimen: Skin, right chest 0 4:11 PM ASSISTANT PROJECT ENGINEER DERMATOPATHOLOGY LABORATORY Final Diagnosis Specimen A. SKIN, right chest: COMPOUND MELANOCYTIC NEVUS (D22.5) 0 4:11 PM [facility] DERMATOPATHOLOGY LABORATORY Clinical History Nevus vs atypia. Path# [id number] 0 4:11 PM [facility] DERMATOPATHOLOGY LABORATORY Gross Description Specimen A: Received is one formalin filled container labeled with the patient's name and designated right chest. The specimen consists of a shave biopsy measuring 6x5x1 mm. Jar 0. 0 4:11 PM [facility] DERMATOPATHOLOGY LABORATORY Microscopic Description Specimen A. SKIN, right chest: There are nests of melanocytes at the dermal-epidermal junction and within the dermis. 0 4:11 PM [facility] DERMATOPATHOLOGY LABORATORY Disclaimer An external and internal positive and negative controls are appropriate for the histochemical, immunohistochemical and immunofluorescence stain(s) in this case (if any), except where stated explicitly. The performance characteristics of the stain(s) cited in this report were developed and its performance characteristic determined by the Dermatopathology Laboratory at [facility], directed by Dr. Ivette Newman. These tests need not be, and therefore are not, approved by the [place] Food and Drug Administration. The tests are used for clinical purposes. Billing Codes Specimen Charges Stain Charges 46754 1 0 4:11 PM ASSISTANT PROJECT ENGINEER DERMATOPATHOLOGY LABORATORY Embedded Images 0 4:11 PM [facility] DERMATOPATHOLOGY LABORATORY Pathology/Cytolog y TISSUE SPECIMEN FROM SKIN / Unknown 04/19/2020 04/21/2020 1:12 PM ASSISTANT PROJECT ENGINEER us Navdeep Mclaughlin MD LAB - PATHOLOGY/CYTOLOGY ORDER [place] Final Result DERMATOPATHOLOGY LABORATORY [facility] - Department of Dermatology [address] [place] [address], [facility] [phone] documented in this encounter Visit Diagnoses Not on filedocumented in this encounter
--- OUTSIDE RECORDS SUMMARY | 2024-10-06 14:58 | XMS_ITS | Encounter Summary ---
Author Organization [facility] Address [address] [place] [address] Phone Care Team Providers Care Computer Game Programmer Name Role Phone Kiara Sharpe Primary Care Provider +1- [phone] Encounter Details Date Type Department Care Team (Late st Contact Info) Description 08/14/2024 Results Follow-Up [facility] Pediatric Endocrinology [address] [place] [address] Calixto Rollins, [facility] [address] [place] [address] Social History Tobacco Use Types [...] on file Legal Sex Female 11:07 PM BRAILLE PROOFREADER Gender Identity Female 11/03/2020 9:14 PM CDT [...] 7.5 Result Component 8.1(06/24/19 21 10:07 AM BRAILLE PROOFREADER) No Jayda Marquez MD documented as of this encounter Visit Diagnoses Not on filedocumented in this encounter Care Teams Computer Game Programmer Relationship Specialty Start Date End Date Kiara Sharpe PA [address] [facility] [address] [place] [address] PCP - General Internal Medicine 03/19/23 documented as of this encounter
--- OUTSIDE RECORDS SUMMARY | 2024-10-06 14:58 | XMS_ITS | Clinical Summary ---
Author Organization [facility] Address [address] [place] [address] Care Team Providers Care Wheelabrator Operator Name Role Phone Kiara Sharpe Primary Care Provider +1- [phone] Allergies No known active allergies Medications lancets [...] 07/22/2023 Assessment & Plan (07/22/2023 9:46 PM AIRCRAFT ENGINE TECHNICIAN): Strep was negative. Encouraged good nutrition. She [...] evaluation. Assessment & Plan (07/22/2023 9:45 PM AIRCRAFT ENGINE TECHNICIAN): Continue therapy. She is still seeing improvement. If it persists may need to see orthopedics Assessment & Plan (05/23/2023 12:00 AM AIRCRAFT ENGINE TECHNICIAN): Patient continues to experience neck mid back [...] 03/27/2023 Assessment & Plan (05/23/2023 12:00 AM AIRCRAFT ENGINE TECHNICIAN): Patient continues to experience neck mid back [...] 1 diabetic. Follows with pediatric Endocrinology and ELECTRIC MOTOR TESTER Ria. She is on a pump and continuous glucose monitoring. Indigestion 03/22/2015 Chronic constipation 03/22/2015 Resolved Problems Problem Noted Date Diagnosed Date Resolved Date Neck pain 05/22/2023 11/04/2023 Assessment & Plan (07/22/2023 9:45 PM AIRCRAFT ENGINE TECHNICIAN): Continue therapy. She is still seeing improvement. If it persists may need to see orthopedics Assessment & Plan (05/23/2023 12:00 AM AIRCRAFT ENGINE TECHNICIAN): Patient continues to experience neck mid back [...] 024 Assessment & Plan (07/22/2023 9:46 PM AIRCRAFT ENGINE TECHNICIAN): Weight/BMI is in healthy range. Continue healthy lifestyle to maintain. Assessment & Plan (05/14/2023 2:16 PM AIRCRAFT ENGINE TECHNICIAN): Weight/BMI is in healthy range. Continue healthy lifestyle to maintain. Assessment & Plan (03/27/2023 10:07 PM CDT): Weight/BMI is in healthy range. Continue healthy lifestyle to maintain. Vomiting 03/22/2015 11/16/2017 Encounters Date Type Department Care Team Description 10/02/2024 Orders Only [facility] [address] [place] [address] Provider, MD Clair 09/08/2024 Telephone [facility] [address] [facility] [address] [place] [address] Kiara Sharpe PA 09/03/2024 Telephone [facility] Pediatric Endocrinology [facility] 2nd [place] [address] [place] [address] Tg Houston MD 08/14/2024 Results Follow-Up [facility] Pediatric Endocrinology [facility] [address] [address] Calixto Rollins NP from Last 3 Months Immunizations Immunization Administration [...] on file Legal Sex Female 11:07 PM AIRCRAFT ENGINE TECHNICIAN Gender Identity Female 11/03/2020 9:14 PM CDT Sexual Orientation Straight 11/03/2020 9: 14 PM CDT 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 Job 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 Not on file Not on file Not on file Obstetrics History Last Filed Vital Signs Vital Sign Reading Time Taken Comments Blood Pressure 119/82 07/04/2024 2:46 PM AIRCRAFT ENGINE TECHNICIAN Pulse 69 07/04/2024 2:46 PM AIRCRAFT ENGINE TECHNICIAN Temperature 36.4 C (97.5 F) 12/21/2023 11:17 AM CDT Respiratory Rate 20 05/02/2023 3:38 PM AIRCRAFT ENGINE TECHNICIAN Oxygen Saturation 100% 07/04/2024 2:46 PM AIRCRAFT ENGINE TECHNICIAN Inhaled Oxygen Concentration - - Weight 66.5 kg (146 lb 9.7 oz) 07/04/2024 2:46 P M AIRCRAFT ENGINE TECHNICIAN Height 163 cm (5' 4.17 ) 07/04/2024 2:46 PM AIRCRAFT ENGINE TECHNICIAN Body Mass Index 25.03 07/04/2024 2:46 PM AIRCRAFT ENGINE TECHNICIAN Plan of Treatment Health Maintenance Due Date Last Done Comments Foot Exam 2004 Hepatitis C Screening 2004 eGFR 2004 Pneumococcal vaccine <65 (1 of 1 - PPSV23) 2010 01/17/2006, 04/07/2005, 01/20/2005, Additional history exists Dilated Eye Exam 2014 HPV Vaccines (3 - 3-dose series) 01/04/2023 10/13/19, 12/21/2021 Covid-19 Vaccine (2023-2 5 season) 2024 11/11/2020, 10/21/2020 Regular Well [...] 7.5 Result Component 8.1(06/24/19 21 10:07 AM AIRCRAFT ENGINE TECHNICIAN) No Jayda Marquez MD Procedures Procedure Name Priority Date/Time Associated Diagnosis Comments URINE CULTURE Routine 09/26/2024 1:06 PM CDT ALBUMIN CREATININE RATIO, URINE Routine 08/07/2024 11:38 [...] HEMOGLOBIN A1C Routine 07/04/2024 2 :49 PM AIRCRAFT ENGINE TECHNICIAN Type 1 diabetes mellitus without complication (HCC) from Last 3 Months or Most Recently Relevant to Health Maintenance Results * Urine culture (09/26/2024 1:06 PM CDT) us Historical Provider LAB MICROBIOLOGY - GENERA L ORDERABLES Final Result * Tissue transglutaminase IgA (TGG-IgA Ab) (08/07/2024 11:38 AM CDT) Tissue transglutaminase ab, IgA <1.0 U/mL [facility] Comment: Value Interpretation ----- <15.0 Antibody not detected > or = 15.0 Antibody detected Blood 08/07/2024 11:3 8 AM CDT 08/07/2024 11:39 AM CDT Narrative [facility] - 08/10/2024 3:14 AM CDT FASTING:YES FASTING: YES Calixto Rollins ELECTRIC MOTOR TESTER LAB BLOOD ORDERABLES Fi nal Result Performing Organization Address City/[facility]/ZIP Co de Phone Number [facility] [address] [place] [address] * Albumin Creatinine Ratio, Urine (08/07/2024 11:38 [...] AM CDT FASTING:YES FASTING: YES Calixto Rollins ELECTRIC MOTOR TESTER LAB URINE ORDERABLES Fi nal Result [facility] [address] [place] [address] * TSH (08/07/2024 11:38 AM CDT) TSH 0.80 mIU/L [facility] Comment: Reference Range 1-19 Years 0.50-4.30 Ranges First trimester 0.26-2.66 Second trimester 0.55-2.73 Third trimester 0.43-2.91 Blood 08/07/2024 11:3 8 AM CDT 08/07/2024 11:39 AM CDT Narrative [facility] - 08/10/2024 3:14 AM CDT FASTING:YES FASTING: YES Calixto Rollins ELECTRIC MOTOR TESTER LAB BLOOD ORDERABLES Fi nal Result Performing Organization Address [facility] Co de Phone Number [facility] [address] [place] [address] * T4, free (08/07/2024 11:38 AM CDT) Free T4 1.2 0.8 - 1.4 ng/dL [facility] Blood 08/07/2024 11:3 8 AM CDT 08/07/2024 11:39 AM CDT Narrative [facility] - 08/10/2024 3:14 AM CDT FASTING:YES FASTING: YES Calixto Rollins ELECTRIC MOTOR TESTER LAB BLOOD ORDERABLES Fi nal Result Performing Organization Address [facility] de Phone Number [facility] [address] [place] [address] * (ABNORMAL) Lipid panel (08/07/2024 11:38 AM [...] LDL-C. David SS et al. JERMAINE. 2013;310(19): 6417-1659 (http://education.Endorse.me/faq/YVO717) Chol/HDL ratio 1.9 <5.0 (calc) [facility] [...] CDT FASTING:YES FASTING: YES us Calixto Rollins ELECTRIC MOTOR TESTER LAB BLOOD ORDERABLES Fi nal Result [facility] [address] [address] * POCT hemoglobin A1c (07/04/2024 2:49 PM AIRCRAFT ENGINE TECHNICIAN) Hemoglobin A1C, POC 7.3 4.0 - 5.6 % BLD 07/04/2024 2:49 PM AIRCRAFT ENGINE TECHNICIAN us Calixto Rollins NP POINT OF CARE TEST ORDE RABLES Final Result from Last 3 Months or Most Recently Relevant to Health Maintenance Insurance [facility] CHOICE PLUS [facility] H[facility]/PPO Address: [facility] [address] [place] [address] [facility] CHOICE PLUS [facility] HMO/[place] [address] [facility] CHOICE PLUS [facility] HMO/PPO Address: [place] [address] [facility] Outbox O[facility] Address: [address] [place] [address] [facility] CHOICE PLUS [facility] HMO/PPO Address: [address] [address] [place] [address] MRA Care Teams Wheelabrator Operator Relationship Specialty Start Date End Date Kiara Sharpe PA [address] [place] [address] PCP - General Internal Medicine 03/19/23
--- OUTSIDE RECORDS SUMMARY | 2024-10-06 14:58 | XMS_ITS | Continuity of Care Document ---
Author Organization [facility] Address [address] [place] [address] Phone Care Team Providers Care Recreation Professor Name Role Phone Armenta OD, Winston Unavailable Unavailable Procedures Procedure Date Eye Exam & Treatment Refraction Advance Directives Directive Yes / No Effective Date File Name No Information Encounters Encounter Description Practice Location Reason(s) For Visit Diagnoses Date Provider Providers Copied on Encounter [facility], [address], [place], [place], [address], [place] tel:[phone] [facility] No Information 2-201 0 Armenta OD Winston. [address] , [address], [place], [address], [place]. tel:[phone] Family History Family Member Type Diagnosis Age At Onset No Information Payers Payer name Insurance type Covered republican ID Authorlynettea titami(s) [facility] CI [id number] Social History Type Description Quantity Date Captured [...]
--- OUTSIDE RECORDS SUMMARY | 2024-10-06 14:58 | XMS_ITS | Referral Summary ---
Author Organization [facility] Address [address] [place] [address] Care Team Providers Care White Lead Filterer Name Role Phone Kiara Sharpe Primary Care Provider +1- [phone] Encounters Date Type Department Care Team Description 10/02/[address] [facility] Family Medicine [address] [place] [address] [place] [address] ProviderClair MD 09/08/2024 Telephone [facility] Family Medicine [address] [place] [address] [address] [place] [address] Kiara Sharpe PA 09/03/2024 Telephone [facility] Pediatric Endocrinology [facility] 2nd [place] [address] Tg Houston MD 08/14/2024 Results Follow-Up [facility] Physicians [facility] Pediatric Endocrinology [facility] [address] [address] Calixto Rollins NP from Last 3 Months Allergies No known [...] BY MOUTH NIGHTLY 30 tablet 1 03/07/20 Active Senna Laxative 8.6 mg tablet TAKE [...] times a day 60 tablet 3 08/11/19 Active docusate sodium (COLACE) 100 mg capsuleIndications [...] 07/22/2023 Assessment & Plan (07/22/2023 9:46 PM SHEAR ASSEMBLER): Strep was negative. Encouraged good nutrition. She [...] evaluation. Assessment & Plan (07/22/2023 9:45 PM SHEAR ASSEMBLER): Continue therapy. She is still seeing improvement. If it persists may need to see orthopedics Assessment & Plan (05/23/2023 12:00 AM SHEAR ASSEMBLER): Patient continues to experience neck mid back [...] 03/27/2023 Assessment & Plan (05/23/2023 12:00 AM SHEAR ASSEMBLER): Patient continues to experience neck mid back [...] 1 diabetic. Follows with pediatric Endocrinology and RESEARCH PROGRAMMER Ria. She is on a pump and continuous glucose monitoring. Indigestion 03/22/2015 Chronic constipation 03/22/2015 Resolved Problems Problem Noted Date Diagnosed Date Resolved Date Neck pain 05/22/2023 11/04/2023 Assessment & Plan (07/22/2023 9:45 PM SHEAR ASSEMBLER): Continue therapy. She is still seeing improvement. If it persists may need to see orthopedics Assessment & Plan (05/23/2023 12:00 AM SHEAR ASSEMBLER): Patient continues to experience neck mid back [...] 024 Assessment & Plan (07/22/2023 9:46 PM SHEAR ASSEMBLER): Weight/BMI is in healthy range. Continue healthy lifestyle to maintain. Assessment & Plan (05/14/2023 2:16 PM SHEAR ASSEMBLER): Weight/BMI is in healthy range. Continue healthy [...] on file Legal Sex Female 11:07 PM SHEAR ASSEMBLER Gender Identity Female 11/03/2020 9:14 PM CDT Sexual Orientation Straight 11/03/2020 9: 14 PM CDT 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 Job 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 Not on file Not on file Not on file Last Filed Vital Signs Vital Sign Reading Time Taken Comments Blood Pressure 119/82 07/04/2024 2:46 PM SHEAR ASSEMBLER Pulse 69 07/04/2024 2:46 PM SHEAR ASSEMBLER Temperature 36.4 C (97.5 F) 12/21/2023 11:17 AM CDT Respiratory Rate 20 05/02/2023 3:38 PM SHEAR ASSEMBLER Oxygen Saturation 100% 07/04/2024 2:46 PM SHEAR ASSEMBLER Inhaled Oxygen Concentration - - Weight 66.5 kg (146 lb 9.7 oz) 07/04/2024 2:46 P M SHEAR ASSEMBLER Height 163 cm (5' 4.17 ) 07/04/2024 2:46 PM SHEAR ASSEMBLER Body Mass Index 25.03 07/04/2024 2:46 PM SHEAR ASSEMBLER Plan of Treatment Not on file Goals Goal Patient Goal Type Associated Problems Recent Progress Patient-Stated? Author [facility] No Smiley Judd, PhD Note: Increase functioning in daily activities Hemoglobin A1c < 7.5 Result Component 8.1(06/24/19 21 10:07 AM SHEAR ASSEMBLER) No Jayda Marquze MD Procedures Procedure Name Priority Date/Time Associated [...] HEMOGLOBIN A1C Routine 07/04/2024 2 :49 PM SHEAR ASSEMBLER Type 1 diabetes mellitus without complication (HCC) from Last 3 Months or Most Recently Relevant to Health Maintenance Results * Urine culture (09/26/2024 1:06 PM CDT) Historical Provider MD LAB MICROBIOLOGY - GENERA L ORDERABLES Final Result * Tissue transglutaminase IgA (TGG-IgA Ab) (08/07/2024 11:38 AM CDT) Tissue transglutaminase ab, IgA <1.0 U/mL [facility] Comment: Value Interpretation ----- <15.0 Antibody not detected > or = 15.0 Antibody detected Blood 08/07/2024 11:3 8 AM CDT 08/07/2024 11:39 AM CDT Narrative [facility] - 08/10/2024 3:14 AM CDT FASTING:YES FASTING: YES Calixto Rollins RESEARCH PROGRAMMER LAB BLOOD ORDERABLES Fi nal Result [facility] [address] [place] [address] * Albumin Creatinine Ratio, Urine (08/07/2024 11:38 [...] AM CDT FASTING:YES FASTING: YES Calixto Rollins RESEARCH PROGRAMMER LAB URINE ORDERABLES Fi nal Result Performing Organization Address [facility] de Phone Number [facility] [address] [place] [address] * TSH (08/07/2024 11:38 AM CDT) Pathologist [...] ORDERABLES Fi nal Result Performing Organization Address [facility] Co de Phone Number [facility] [address] [place] [address] * T4, free (08/07/2024 11:38 AM CDT) Free T4 1.2 0.8 - 1.4 ng/dL [facility] Blood 08/07/2024 11:3 8 AM CDT 08/07/2024 11:39 AM CDT Narrative [facility] - 08/10/2024 3:14 AM CDT FASTING:YES FASTING: YES us Calixto Rollins NP LAB BLOOD ORDERABLES Fi nal Result [facility] [address] [place] [address] * (ABNORMAL) Lipid panel (08/07/2024 11:38 AM CDT) Pathologist [facility] Cholesterol 182(H) <170 mg/dL [facility] HDL 95 >45 mg/dL [facility] Triglycerides 51 <90 mg/dL [facility] LDL 74 <110 mg/dL (calc) [facility] Comment: LDL-C is now calculated using the David-Larisa calculation, which is a validated novel method providing better accuracy than the Friedewald equation in the estimation of LDL-C. David SS et al. JERMAINE. 2013;310(19): 5843-0998 (http://education.[employer].[facility]/faq/EZK619) Chol/HDL ratio 1.9 <5.0 (calc) [facility] [...] LAB BLOOD ORDERABLES Fi nal Result [facility] [address] [address] * POCT hemoglobin A1c (07/04/2024 2:49 PM SHEAR ASSEMBLER) Hemoglobin A1C, POC 7.3 4.0 - 5.6 % [facility] 07/04/2024 2:49 PM SHEAR ASSEMBLER us Calixto Rollins NP POINT OF CARE TEST ANN SIMMONS Final Result from Last 3 Months or Most Recently Relevant to Health Maintenance Insurance [facility] CHOICE PLUS [facility] H[facility]/PPO Address: [facility] [address] [place] [address] [facility] CHOICE PLUS [facility] H[facility]/PPO Address: [facility] [address] [place] [address] [facility] CHOICE PLUS [facility] HMO/PPO Address: [facility] [address] [place] [address] [employer] [facility] CHOICE PLUS [facility] H[facility]/[place] [address] [address] [place] [address] Care Teams White Lead Filterer Relationship Specialty Start Date End Date Kiara Sharpe PA [address] [facility] [address] [place] [address] PCP - General Internal Medicine 03/19/23
--- OUTSIDE RECORDS SUMMARY | 2024-10-06 14:58 | XMS_ITS | Encounter Summary ---
Author Organization [facility] Healthcare Address [address] [place] [address] Care Team Providers Care Display Fabrication Supervisor Name Role Phone Kiara Sharpe Primary Care Provider +1- [phone] Encounter Details Date Type Department Care Team (Late st Contact Info) Description 10/02/2024 Orders Only [facility] Medical Group Family Medicine [address] [facility] [address] [place] [address] Provider, MD Clair [address] [place] [address] Social History Tobacco Use Types Packs/Day Years [...] on file Legal Sex Female 11:07 PM HEALTHCARE OR MEDICAL Gender Identity Female 11/03/2020 9:14 PM CDT [...] 7.5 Result Component 8.1(06/24/19 21 10:07 AM HEALTHCARE OR MEDICAL) No Jayda Marquez MD documented as of this encounter Procedures Procedure Name Priority Date/Time Associated Diagnosis Comments URINE CULTURE Routine 09/26/2024 1:06 PM CDT documented in this encounter Results * Urine culture (09/26/2024 1:06 PM CDT) us Historical Provider LAB MICROBIOLOGY - GENERA L ORDERABLES Final Result documented in this encounter Visit Diagnoses Not on filedocumented in this encounter Care Teams Display Fabrication Supervisor Relationship Specialty Start Date End Date Kiara Sharpe PA [address] [facility] [address] [place] [address] PCP - General Internal Medicine 03/19/23 documented as of this encounter
--- OUTSIDE RECORDS SUMMARY | 2024-10-06 14:58 | XMS_ITS | Clinical Summary ---
Author Organization [facility] Address [address] [place] [address] Care Team Providers Care Farm Equipment Engine Mechanic Name Role Phone Unavailable Primary Care Provider Unavailabl e Source Comments [facility],non-owned Affiliates and Associated Physician Practices is amultiple site organization consisting of ambulatory clinics and hospital sitesin [place], [place], [place] and [place]. This disclosure is being madepursuant to the Care Everywhere program and may not contain all information available regarding this patient. Last updated 18.[employer] [facility] Allergies No known active allergies Medications * [...] on file Legal Sex Female 5:44 AM HEALTH INFORMATION CODER Gender Identity Not on file Sexual Orientation Not on file Last Filed Vital Signs Vital Sign Reading Time Taken Comments Blood Pressure 110/62 10/15/2020 11:46 AM CDT Pulse 70 10/15/2020 11:46 AM CDT Temperature 37 C (98.6 F) 10/15/2020 11:46 AM CDT Respiratory Rate 20 10/15/2020 11:46 AM CDT Oxygen Saturation 98% 07/02/2019 12:50 PM HEALTH INFORMATION CODER Inhaled Oxygen Concentration - - Weight 66.2 kg (146 lb) 10/15/2020 11:46 AM CDT Height 162.6 cm (5' 4 ) 07/02/2019 12:50 PM HEALTH INFORMATION CODER Body Mass Index - - Plan of [...]
--- OUTSIDE RECORDS SUMMARY | 2024-10-06 14:58 | XMS_ITS | Clinical Summary ---
Author Organization [facility] Address [address] [place] [address] Care Team Providers Care Crude Oil Driver Name Role Phone Unavailable Primary Care Provider Unavailabl e Social History Tobacco Use Types Packs/Day Years Used Date Smoking Tobacco: Never Assessed Comments Unknown Sex and Gender Information Value Date Recorded Sex Assigned at Not on file Legal Sex Female 10:48 AM MANAGER LOSS PREVENTION Gender Identity Not on file Sexual Orientation [...]
--- OUTSIDE RECORDS SUMMARY | 2024-10-06 14:58 | XMS_ITS | Encounter Summary ---
Author Organization [facility] Healthcare Address [address] [place] [address] Care Team Providers Care Multi Skilled Operator Name Role Phone Kiara Sharpe Primary Care Provider +1- [phone] Encounter Details Date Type Department Care Team (Late st Contact Info) Description 01/02/2024 Orders Only [facility] Health Information Management [address] [place] [address] Scanning, Provider Social History Tobacco Use Types [...] on file Legal Sex Female 11:07 PM FORECLOSURE PARALEGAL Gender Identity Female 11/03/2020 9:14 PM CDT [...] 7.5 Result Component 8.1(06/24/19 21 10:07 AM FORECLOSURE PARALEGAL) No Jayda Marquez MD documented as of this encounter Procedures Procedure Name Priority Date/Time Associated Diagnosis Comments SCAN - LABS 01/02/2024 documented in this encounter Results * SCAN - LABS (01/02/2024) us Provider Scanning Edited Result - Final documented in this encounter Visit Diagnoses Not on filedocumented in this encounter Care Teams Multi Skilled Operator Relationship Specialty Start Date End Date Kiara Sharpe PA [address] [facility] [address] [place] [address] PCP - General Internal Medicine 03/19/23 documented as of this encounter
--- OUTSIDE RECORDS SUMMARY | 2024-10-06 14:58 | XMS_ITS | Encounter Summary ---
Author Organization [facility] Address [address] [place] [address] Phone Care Team Providers Care Frit Mixer And Burner Name Role Phone Iron Tavarez MD Primary Care Provider [phone] Nilsa Costa MD Primary Care Provider Kiara Sharpe Primary Care Provider [phone] Reason for Visit * Reason Onset Date Comments Letter for School/Work 01/13/2021 Encounter Details Date Type Department Care Team (Late st Contact Info) Description 01/13/2021 Documentation [facility] Pediatric Genetics [address] [place] [address] Medical Office Building [address] [place] [address] Sonya Miramontes MS Letter for [...] on file Legal Sex Female 11:07 PM MEDIA RELATIONS MANAGER Gender Identity Female 11/03/2020 9:14 PM CDT Sexual Orientation Straight 11/03/2020 9: 14 PM CDT documented as of this encounter Plan of Treatment Not on file documented as of this encounter Goals Goal Patient Goal Type Associated Problems Recent Progress Patient-Stated? Author [facility] Smiley Flores, PhD Note: Increase functioning in daily activities Hemoglobin A1c < 7.5 Result Component 8.1(06/24/19 10:07 AM MEDIA RELATIONS MANAGER) No Jayda Marquez MD documented as of this encounter Visit Diagnoses Not on filedocumented in this encounter Care Teams Frit Mixer And Burner Relationship Specialty Start Date End Date Iron Tavarez MD [address] [facility] [address] [place] [address] PCP - General 11/22/16 02/08/22 Nilsa Costa MD [address] [facility] [address] [place] [address] PCP - General Pediatrics 02/09/22 03/18/23 Kiara Sharpe PA [address] [facility] [address] [place] [address] PCP - General Internal Medicine 03/19/23 documented as of this encounter
[2024-10-06 15:13] VITALS: BP 128/55; PULSE 82; RESP 18; TEMP 36.3; O2SAT 100
[2024-10-06 15:29] LABS: BEDSIDEPREGUCG Negative (Negative)
[2024-10-06 15:32] LABS: EDUAAPPEAR Clear; EDUABILI Negative (Negative); EDUABLOOD Trace (Negative); EDUACOLOR1 Yellow; EDUAGLUCOSE Negative (Negative); EDUAKETONE Negative (Negative); EDUALEUKO 1+ (Negative); EDUANITRATE Negative (Negative); EDUAPROTEIN 1+ (Negative); EDUASPGRAVITY 1.025; EDUAUROBILI 0.2
[2024-10-07 14:08] LABS: Bacterial Vaginosis NEGATIVE (NEGATIVE)
== END 2024-10-06 15:32 | disposition home or self-care (01) ==
PROVIDERS: Emergency Provider Nurse Practitioner Family; PCP Physician Assistant
DX: N89.8 Other specified noninflammatory disorders of vagina (principal); N30.01 Acute cystitis with hematuria; Z11.3 Encounter for screening for infections with a predominantly sexual mode of transmission; E10.9 Type 1 diabetes mellitus without complications; Z79.84 Long term (current) use of oral hypoglycemic drugs
CPT/HCPCS: 81003; 81025; 81513; 87086; 99213; G0463

== ENCOUNTER 2025-02-02 10:38 | Emergency (ER) | payer OTHER, SELFPAY ==
--- OUTSIDE RECORDS SUMMARY | 2009-11-26 04:15 | XMS_ITS | Continuity of Care Document ---
Author Organization [facility] Address [address] [place] [address] Phone Care Team Providers Care Sustainability Analyst Name Role Phone Armenta OD, Winston Unavailable Unavailable Procedures Procedure Date Eye Exam & Treatment Refraction Advance Directives Directive Yes / No Effective Date File Name No Information Encounters Encounter Description Practice Location Reason(s) For Visit Diagnoses Date Provider Providers Copied on Encounter [facility], [address], [place], [place], [id number], [place] tel:[phone] [facility] No Information 2-201 0 Armenta OD Winston. [address] , [address], [place], [address], [place]. tel:[phone] Family History Family Member Type Diagnosis Age At Onset No Information Payers Payer name Insurance type Covered green party ID Authorlynettea titami(s) [facility] CI [id number] Social History Type Description Quantity Date Captured Comments Sex Female Smoking Status No Information Chief Complaint And Reason For Visit No Information Reason For Referral Reason For Referral No Information History Of Present Illness Encounter Date Complaint History Of Prese nt Illness No Information Functional Status Date Functional Assessmen t No Information Instructions Date Instruction Additional Infor mation No Information Assessments Type Assessment Date No Information Patient Care Teams Name Effective Dates (start - stop) Status Members No Information
--- OUTSIDE RECORDS SUMMARY | 2009-11-26 04:15 | XMS_ITS | Continuity of Care Document ---
Author Organization [facility] Address [address] [place] [address] Phone Care Team Providers Care Echometer Engineer Name Role Phone Armenta OD, Winston Unavailable Unavailable Procedures Procedure Date Eye Exam & Treatment Refraction Advance Directives Directive Yes / No Effective Date File Name No Information Encounters Encounter Description Practice Location Reason(s) For Visit Diagnoses Date Provider Providers Copied on Encounter [facility], [address], [place], [place], [id number], [place] tel:[phone] [facility] No Information 2-201 0 Armenta OD Winston. [address] , [address], [place], [address], [place]. tel:[phone] Family History Family Member Type Diagnosis Age At Onset No Information Payers Payer name Insurance type Covered alliance party ID Authorlynettea titami(s) [facility] CI [id number] Social History Type Description Quantity Date Captured [...]
--- NOTE | ~2025-02-02 | XR_ITS ---
Examination: XR chest 2V Clinical History: cough and congestion Comparison: None Technique: PA and Lateral Findings: Cardiomediastinal silhouette normal size and configuration. Lungs clear. No acute bony abnormality. IMPRESSION: 1. No acute cardiopulmonary findings. Reviewed, dictated and finalized at location A.
[2025-02-02 10:46] VITALS: BP 124/66; PULSE 77; RESP 18; TEMP 36.9; O2SAT 100
--- OUTSIDE RECORDS SUMMARY | 2025-02-02 10:58 | XMS_ITS | Encounter Summary ---
Author Organization [facility] Address [address] [place] [address] Phone Care Team Providers Care Overhead Worker Name Role Phone Iron Tavarez MD Primary Care Provider [phone] Nilsa Costa MD Primary Care Provider Kiara Sharpe Primary Care Provider [phone] Reason for Visit * Reason Onset Date Comments Letter for School/Work 01/13/2021 Encounter Details Date Type Department Care Team (Late st Contact Info) Description 01/13/2021 Documentation [facility] [place] Pediatric Genetics [address] [place] [address] [address] [place] [address] Sonya Miramontes MS Letter for [...] on file Legal Sex Female 11:07 PM ENTERPRISE SYSTEMS ADMINISTRATOR Gender Identity Female 11/03/2020 9:14 PM CDT [...] 7.5 Result Component 8.1(06/24/19 21 10:07 AM ENTERPRISE SYSTEMS ADMINISTRATOR) No Jayda Marquez MD documented as of this encounter Visit Diagnoses Not on filedocumented in this encounter Care Teams Overhead Worker Relationship Specialty Start Date End Date Iron Tavarez MD [address] [facility] [address] [place] [address] PCP - General 11/22/16 02/08/22 Nilsa Costa MD [address] [facility] [address] [place] [address] PCP - General Pediatrics 02/09/22 03/18/23 Kiara Sharpe PA [address] [facility] [address] [facility] [address] [place] [address] PCP - General Internal Medicine 03/19/23 documented as of this encounter
--- OUTSIDE RECORDS SUMMARY | 2025-02-02 10:58 | XMS_ITS | Encounter Summary ---
Author Organization [facility] Address [address] [place] [address] Care Team Providers Care Barrel Marker Name Role Phone Kiara Sharpe Primary Care Provider [phone] Encounter Details Date Type Department Care Team (Late st Contact Info) Description 12/31/2024 Results Follow-Up [facility] Family Medicine [address] [facility] [address] [place] [address] Kiara Sharpe PA [address] [facility] [address] [place] [address] TB test, quantiferon gold, Urine culture Social History Tobacco Use Types Packs/Day Years Used Date Smoking Tobacco: Never Smokeless Tobacco: Never AUDIT-C Answer Date Recorded Q1: How often do you have a drink containing alcohol? Never 10/27/2024 Q2: How many drinks containi ng alcohol do you have on a typical day when you are drinking? Patient does not drink Q3: How often do you have si x or more drinks on one occasion? Never 10/27/2024 PHQ-2 Answer Date Recorded PHQ-2 Total Score (If total score is 3 or more points, staff should administer the PHQ-9) 0 10/27/2024 Personal Safety Answer Date Recorded Have you ever been in or are you currently in a harmful physical or emotional relationship or is someone making you feel afraid or unsafe? Denies 03/15/2023 Comments No Sex and Gender Information Value Date Recorded Sex Assigned at Not on file Legal Sex Female 11:07 PM TILE MECHANIC Gender Identity Female 11/03/2020 9:14 PM CDT [...] < 7.5 Result Component 8.1(06/24/19 10:07 AM TILE MECHANIC) No Jayda Marquez MD documented as of this encounter Visit Diagnoses Not on filedocumented in this encounter Care Teams Barrel Marker Relationship Specialty Start Date End Date Kiara Sharpe PA [address] [address] PCP - General Internal Medicine 03/19/23 documented as of this encounter
--- OUTSIDE RECORDS SUMMARY | 2025-02-02 10:59 | XMS_ITS | Encounter Summary ---
Author Organization [facility] Address [address] [facility] [address] Care Team Providers Care Air Pollution Analyst Name Role Phone Unavailable Primary Care Provider Unavailabl e Encounter Details Date Type Department Care Team (Late st Contact Info) Description 04/21/2020 Lab Requisition [facility] DermPath Lab [address] 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 Gender Identity Not on file Sexual Orientation Not on file documented as of this encounter Plan of Treatment Not on file documented as of this encounter Procedures Procedure Name Priority Date/Time Associated Diagnosis Comments DERMATOPATHOLOGY Routine 04/19/2020 12:0 0 AM ORNAMENTAL IRON WORKER APPRENTICE documented in this encounter Results * DERMATOPATHOLOGY (04/19/2020 12:00 AM ORNAMENTAL IRON WORKER APPRENTICE) Case Report Dermatopathology Report Case: [id number] Authorizing Provider: Navdeep Mclaughlin MD Collected: 04/19/2020 12:00 AM Ordering Location: [facility] DermPath Lab Received: 04/21/2020 01:12 PM Pathologist: Marita Trejo MD Specimen: Skin, right chest 0 4:11 PM ORNAMENTAL IRON WORKER APPRENTICE DERMATOPATHOLOGY LABORATORY Final Diagnosis Specimen A. SKIN, right chest: COMPOUND MELANOCYTIC NEVUS (D22.5) 0 4:11 PM [facility] DERMATOPATHOLOGY LABORATORY at [address] ORNAMENTAL IRON WORKER APPRENTICE Clinical History Nevus vs atypia. Path# [id number] 0 4:11 PM [facility] DERMATOPATHOLOGY LABORATORY Gross Description Specimen A: Received is one formalin filled container labeled with the patient's name and designated right chest. The specimen consists of a shave biopsy measuring 6x5x1 mm. Jar 0. 0 4:11 PM [facility] DERMATOPATHOLOGY LABORATORY Microscopic Description Specimen A. SKIN, right chest: There are nests of melanocytes at the dermal-epidermal junction and within the dermis. 0 4:11 PM [facility] DERMATOPATHOLOGY LABORATORY Disclaimer An external and internal positive and negative controls are appropriate for the histochemical, immunohistochemical and immunofluorescence stain(s) in this case (if any), except where stated explicitly. The performance characteristics of the stain(s) cited in this report were developed and its performance characteristic determined by the Dermatopathology Laboratory at [facility], directed by Dr. Ivette Newman. These tests need not be, and therefore are not, approved by the [place] Food and Drug Administration. The tests are used for clinical purposes. Billing Codes Specimen Charges Stain Charges 36064 1 0 4:11 PM [facility] DERMATOPATHOLOGY LABORATORY Embedded Images 0 4:11 PM [facility] DERMATOPATHOLOGY LABORATORY Pathology/Cytolog y TISSUE SPECIMEN FROM SKIN / Unknown 04/19/2020 04/21/2020 1:12 PM [facility] us Navdeep Mclaughlin MD LAB - PATHOLOGY/CYTOLOGY ORDER [place] Final Result DERMATOPATHOLOGY LABORATORY [facility] - Department of Dermatology [address] [place] [address], [facility] [phone] documented in this encounter Visit Diagnoses Not on filedocumented in this encounter
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
--- OUTSIDE RECORDS SUMMARY | 2025-02-02 10:59 | XMS_ITS | Clinical Summary ---
Author Organization 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
--- OUTSIDE RECORDS SUMMARY | 2025-02-02 10:59 | XMS_ITS | Clinical Summary ---
Author Organization [facility] Address [address] [place] [address] Care Team Providers Care Perishable Fruit Inspector Name Role Phone Unavailable Primary Care Provider Unavailabl e Source Comments [facility],non-owned Affiliates and Associated Physician Practices is amultiple site organization consisting of ambulatory clinics and hospital sitesin [place], [place], [place] and [place]. This disclosure is being madepursuant to the Care Everywhere program and may not contain all information available regarding this patient. Last updated [employer] [facility] Allergies No known active allergies Medications * [...] on file Legal Sex Female 5:44 AM COLOR MIXER Gender Identity Not on file Sexual Orientation Not on file Last Filed Vital Signs Vital Sign Reading Time Taken Comments Blood Pressure 110/62 10/15/2020 11:46 AM CDT Pulse 70 10/15/2020 11:46 AM CDT Temperature 37 C (98.6 F) 10/15/2020 11:46 AM CDT Respiratory Rate 20 10/15/2020 11:46 AM CDT Oxygen Saturation 98% 07/02/2019 12:50 PM COLOR MIXER Inhaled Oxygen Concentration - - Weight 66.2 kg (146 lb) 10/15/2020 11:46 AM CDT Height 162.6 cm (5' 4) 07/02/2019 12:50 PM COLOR MIXER Body Mass Index - - Plan of Treatment Health Maintenance Due Date Last Done Comments HIV SCREENING 09/16/2019 HPV VACCINE (1 - 3-dose series) 09/16/2019 CHLAMYDIA/GONORRHEA SCREENING 2020 MENINGOCOCCAL (Group B) VACCINE SHARED DECISION-MAKING (1 of 2 - Standard) 2020 HEPATITIS C SCREENING 09/11/2022 DTAP/TDAP/TD VACCINES (1 - Tdap) 09/16/2023 HEPATITIS B VACCINE (1 of 3 - 19+ 3-dose series) 09/16/2023 DEPRESSION SCREENING 05/28/2024 10/15/2020 COVID-19 VACCINE (1 - 2023- season) 2025 INFLUENZA VACCINE (#1) 2025 0, 04/24/2018, 03/09/2017, Additional history exists ZOSTER VACCINE (1 of 2) 2054 HIB VACCINE Aged Out No longer eligi ble based on patient's age to complete this topic MENINGOCOCCAL GROUPS A/C/Y/W VACCINE Aged Out No longer eligible based on patient's age to complete this topic PNEUMOCOCCAL VACCINE Aged Out No long er eligible based on patient's age to complete this topic Insurance [employer] * Guarantor: NICOLE FRANKLIN Account Type Relation to Patient Date of Phone Billing Address Personal/Family [address] [place] [address]
--- NOTE | 2025-02-02 11:07 | ED.URI ---
HPI - URI/Sore Throat General Chief Complaint: Upper Respiratory Infection Stated Complaint: cold symptoms/back pain upon inhale Time Seen by Provider: 02/02/25 11:00 Source: patient, RN notes reviewed and old records reviewed Mode of arrival: ambulatory Limitations: no limitations History of Present Illness HPI Narrative: 19 year old female who presents with sore throat,nasal congestion with drainage, sinus pressure and productive cough of clear yellow mucous for the past week duration. Patient reports that she started last night having some pain in her back with deep breathing. Patient has been taking Sudafed and NyQuil for her symptoms. Patient is type I diabetic and has insulin pump states glucose levels have been good. Patient reports no known fevers chills or sweats. MD elicited complaint: cough and sore throat Pertinent past history: other (diabetes,strep, bronchitis,pneumonia) Onset (ago): week(s) (1) Severity: moderate Description of mucous: yellow Able to tolerate fluids by mouth: Yes Treatments prior to arrival: other (Sudafed, NyQuil) Related Data Home Medications ?Medication ?Instructions ?Recorded ?Confirmed ?Last Taken ?Type fluoxetine 20 mg capsule mg 01/02/24 Unknown History insulin lispro 100 unit/mL subcut 01/02/24 01/02/24 Unknown History subcutaneous pen (Humalog KwikPen (U-100) Insulin) norgestimate 0.25 mg-ethinyl tablet 01/02/24 Unknown History estradiol 0.035 mg tablet (Aliyah) buspirone 15 mg tablet mg 09/06/24 Unknown History loratadine 10 mg tablet (Allergy 10 mg PO DAILY 09/06/24 10/06/24 Unknown History Relief (loratadine)) Allergies Allergy/AdvReac Type Severity Reaction Status Date / Time No Known Allergies Allergy Verified 02/02/25 10:46 Review of Systems Review of Systems: CONSTITUTIONAL: Reports malaise, no chills, sweats, or fever. EYES: Denies visual changes, redness, or discharge. ENT: Reports rhinorrhea, congestion, sinus pain, no otalgia and positive for sore throat. CARDIOVASCULAR: Denies chest pain, palpitations, or edema. RESPIRATORY: Reports cough.?Reports pain at times to back with inhalation. GASTROINTESTINAL: Denies abdominal pain, nausea, vomiting, diarrhea SKIN: Denies rash or itching. MUSCULOSKELETAL: Denies myalgia. NEUROLOGIC: Denies headache. All systems reviewed & are unremarkable except as noted in HPI and below PMFSH Past Medical History Medical History (Updated 02/03/25 @ 08:14 by Aster Ashley NP) Mononucleosis Pneumonia Bronchitis Otitis media History of strep sore throat Diabetes type 1 Social History Social History Smoking status: Current some day smoker Tobacco type: e-cigarettes/vaping Alcohol intake: current Alcohol use details: rare social Substance use type: does not use Living arrangements: with family Gender identity (if verbalized by the patient): Female Comments At time of signature, agree with nursing past medical, surgical, social and family history. There is no relevant family history pertinent to the presenting complaint Exam Narrative: GENERAL: Well-appearing, well-nourished, and in no acute distress. HEAD: Normocephalic EYES: PERRLA, conjunctivae clear ENT: Nares clear, turbinates edematous and erythematous, yellowish discharge. Mucous membranes moist. TM pearly jiang with dull light reflex bilaterally; no tragal tenderness. Oropharynx erythematous without lesions. Tonsils not enlarged and without exudate, no drooling, no hoarseness, no trismus, uvula midline.post nasal drainage noted. NECK: Supple. No lymphadenopathy CHEST: scattered wheezing on auscultation, coarse breath sounds equal. Positive wheezing,no rhonchi, rales, or stridor. No respiratory distress, speaks in full sentences.productive cough, SAO2 100% on room air HEART: Regular rate and rhythm. No murmur heard. SKIN: Warm, dry, no rash. NEURO: Alert and oriented x3. PSYCH: Normal mood and affect Course Course Emergency Course: Patient is aware of diagnosis, understands and agrees to treatment plan.? Anticipatory guidance given.? Patient agrees to follow-up as directed and is aware of reasons to seek care at the emergency department. Portions of this record may have been created with voice recognition software Level of Care: Express Care Visit Vital Signs Vital signs: Vital Signs Temperature 36.9 C 02/02/25 10:46 Pulse Rate 77 02/02/25 10:46 Respiratory Rate 18 02/02/25 10:46 Blood Pressure 124/66 02/02/25 10:46 Pulse Oximetry 100 02/02/25 10:46 Oxygen Delivery Room Air 02/02/25 10:46 Temperature 36.9 C 02/02/25 10:46 Pulse Rate 77 02/02/25 10:46 Respiratory Rate 18 02/02/25 10:46 Blood Pressure 124/66 02/02/25 10:46 Pulse Oximetry 100 02/02/25 10:46 Oxygen Delivery Room Air 02/02/25 10:46 Reviewed MDM - URI/Sore Throat MDM Narrative Medical decision making narrative: Differential diagnosis considered: Bates virus, strep pharyngitis, allergic rhinitis, upper respiratory tract infection, sinusitis, rhinosinusitis, nasopharyngitis. viral pharyngitis, otitis media, otitis externa, pneumonia, bronchitis, viral cough syndrome, viral syndrome, and influenza.? Exam findings show no acute concerns or changes; patient is non-toxic appearing and is in no distress.? Patient is appropriate for outpatient treatment and follow-up. Differential Diagnosis Differential diagnosis: Likely upper respiratory infection, sinusitis, viral infection and bronchitis Medical Records Attestation: I reviewed the patient's medical records. Lab Data Attestation: I reviewed the patient's lab results. Imaging Data Attestation: I personally reviewed and interpreted this imaging study as follows: My impression: no acute cardiopulmonary findings Radiologist's impression: [place] [address] XRay Report Signed Patient: Jo Franklin : 2005 MR#: [id number] Age: 19 Acct:[id number] Loc: [facility] ADM Date: 02/02/25Attending Dr: Ordering Physician: Aster Ashley APRN Date of Service: 02/02/25 Procedure(s): XR chest 2V Accession Number(s): [id number] cc: Aster Ashley APRN; Dell, Kiara RIVERA~ Examination: XR chest 2V Clinical History: cough and congestion Comparison: None Technique: PA and Lateral Findings: Cardiomediastinal silhouette normal size and configuration. Lungs clear. No acute bony abnormality. IMPRESSION: 1. No acute cardiopulmonary findings. Reviewed, dictated and finalized at location A. Please be advised this is a medical document. It is intended for [id number] communication. It is written in medical language and may contain unfamiliar abbreviations or verbiage. Medical documents are intended to carry relevant information, facts as evident, and the clinical opinion of the practitioner at the time of the encounter. This report may have been done utilizing a voice recognition system. Attempts have been made to correct errors. However, there may be uncorrected grammatical, spelling, and recognition errors present. The file time of this note does not necessarily represent the time of service. Dictated By: Stef Clemente MD 02/02/25 1126 Signed By: <Electronically signed by Stef Clemente MD in OV> Critical Care Time Critical Care Time Critical Care Time: No Discharge Plan Discharge Clinical Impression: Bronchitis, Bacterial sinusitis Patient Disposition: Home Condition: Stable Instructions: Antibiotic Form, Sinusitis (ED), Acute Bronchitis (ED) Additional Instructions: Increase fluids especially juices and water Jhoj-nrk-gvafdce cough and cold medicine of your choice for your symptoms Zyrtec or Claritin daily include Sudafed Continue your inhaler/nebulizer as directed Steroids as directed--take with food monitor blood sugars closely maintain dietary restrictions heat to the face 20-30 minutes 4-6 times a day for pain Salt water gargles, throat lozenges or throat sprays as desired Antibiotic as directed--finish the medication If your symptoms persist, change or worsen significantly before you can contact your personal physician then please, without delay, go to the emergency department for further evaluation. Follow-up with PCP in 7-10 days or sooner if needed Patient Language: Swedish Prescriptions: New prednisone 20 mg tablet 20 mg PO BID Qty: 10 0RF albuterol sulfate [Ventolin HFA] 90 mcg/actuation HFA aerosol inhaler 2 puff inhalation QID PRN (Reason: shortness of breath or wheezing) Qty: 6.7 0RF amoxicillin-pot clavulanate 875-125 mg tablet 1 tablet PO Q12H Qty: 14 0RF No Action buspirone 15 mg tablet loratadine [Allergy Relief (loratadine)] 10 mg tablet 10 mg PO DAILY norgestimate-ethinyl estradiol [Aliyah] 0.25-35 mg-mcg tablet fluoxetine 20 mg capsule insulin lispro [Humalog KwikPen Insulin] 100 unit/mL insulin pen SUBCUT Follow-up/Referrals: Dell,LISSET Craig [Primary Care Provider, Unknown] Time of Disposition: 11:54 Quality [place] Coma Scale Eyes: Open Verbal: Oriented and Alert Motor: Follows Commands [place] Coma Total Score: 15
== END 2025-02-02 12:10 | disposition home or self-care (01) ==
PROVIDERS: Emergency Provider Registered Nurse; PCP Physician Assistant
DX: J40 Bronchitis, not specified as acute or chronic (principal); J32.9 Chronic sinusitis, unspecified; F17.290 Nicotine dependence, other tobacco product, uncomplicated; E10.9 Type 1 diabetes mellitus without complications; Z79.4 Long term (current) use of insulin; Z96.41 Presence of insulin pump (external) (internal)
CPT/HCPCS: 71046; 99213; G0463